=== PATIENT | female | born 1965 | race Caucasian/White ===

== ENCOUNTER 2020-09-08 18:47 | Inpatient (IN) ==
[2020-09-08] MEDS ORDERED: ALBUT/IPRATROP 3MG/0.5MG NEB 3 ML VIAL NEB STA (19:30)
[2020-09-08] MEDS ORDERED: BENZONATATE 100 MG CAPSULE PO ONE (19:30)
[2020-09-08] MEDS ORDERED: LORazepam 1 MG/2 ML VIAL IV PRN (19:30)
[2020-09-08] MEDS ORDERED: SODIUM CHLORIDE 0.9% 1000ML 1,000 ML IV SCH (19:30)
[2020-09-08] MEDS ORDERED: ONDANSETRON INJ 2 MG/ML 2 ML VIAL IV STA (19:30)
--- NOTE | 2020-09-08 19:36 | Emergency Department Note ---
History of Present Illness General Chief complaint: Flu Like Symptoms Stated complaint: COV + 08/09, SOB, FEVER, CONGESTION Time Seen by Provider: 09/08/20 19:08 Source: patient Mode of arrival: ambulatory Limitations: no limitations History of Present Illness Provider complaint: Shortness of breath, cough Onset (ago): day(s) 4 Location: chest Severity: moderate Maximum Pain Intensity: 6 Associated symptoms: + chest pain, + cough, + fever/chills, + headaches, + loss of appetite, + malaise, + nausea/vomiting and + shortness of breath Treatments prior to arrival: none This is a 55-year-old female presents the emergency department complaining of increased shortness of breath and cough over the last 3 to 4 days. Patient states she also began having recurrent low-grade fever. Patient states on August 09 she is diagnosed with coronavirus and was admitted to [facility] for 8 days. She states she did feel improved following discharge and was checking her oxygen level with a home pulse oximeter. States home nursing was coming to check on her every other day, and she was also being contacted via phone every day to assure she was improving. Patient states that her temperature went to 99.7. She states her cough is mildly productive, she has had nasal congestion, and with frequent coughing sometimes will vomit. She states the frequent coughing occasionally gives her headache also. Patient denies abdominal pain or change in bowel movements. Patient states she has some mild chest tightness. Patient states she was never smoker, no prior history of asthma or COPD. She states once a year she will typically get bronchitis and does use an inhaler when she gets that. She states the symptoms feel different than her usual bronchitis. Patient states when she called her family doctor few days ago to describe her worsening symptoms, a prescription for cefdinir was called in and she was started on this. Patient is anticoagulated due to history of factor V. No prior history of PE. Pt seen during a time of high acuity and national emergency pandemic while wearing PPE. Home Medications Medication Instructions Recorded Confirmed Type cgtwiurhic-eatrxwdxalaar-qdxguote 2 cap PO Q4H PRN #60 cap 04/29/19 09/08/20 Rx 50 mg-325 mg-40 mg capsule albuterol sulfate 2.5 mg CONTINUOUS NEBULIZATION Q4 09/08/20 09/08/20 History PRN apixaban [Eliquis] 2.5 mg PO BID 09/08/20 09/08/20 History benzonatate 100 mg PO TID PRN 09/08/20 09/08/20 History cyclobenzaprine 10 mg PO BID PRN 09/08/20 09/08/20 History ibuprofen 800 mg PO TID PRN 09/08/20 09/08/20 History lorazepam 0.5 mg PO TID PRN 09/08/20 09/08/20 History Allergies Allergy/AdvReac Type Severity Reaction Status Date / Time amoxicillin Allergy Unknown RASH, Verified 09/08/20 23:01 DIAPHORESIS azithromycin Allergy Unknown Rash Verified 09/08/20 23:01 cephalexin Allergy Unknown RASH Verified 09/08/20 23:01 clindamycin Allergy Unknown RASH Verified 09/08/20 23:01 doxycycline Allergy Unknown RASH Verified 09/08/20 23:01 erythromycin base Allergy Unknown RASH Verified 09/08/20 23:01 naproxen Allergy Unknown RASH, uses Verified 09/08/20 23:01 ibuprofen at home Bactrim AdvReac Unknown NAUSEA AND Verified 03/10/15 16:43 VOMITING citalopram AdvReac Unknown HEADACHE Verified 09/08/20 23:01 metoclopramide AdvReac Unknown DIAPHORESIS, Verified 09/08/20 23:01 MOOD CHANGES, LOW BP sulfamethoxazole AdvReac Unknown NAUSEA AND Verified 09/08/20 23:01 VOMITING sumatriptan AdvReac Unknown SEVERE Verified 09/08/20 23:01 HEADACHE trimethoprim AdvReac Unknown NAUSEA AND Verified 09/08/20 23:01 VOMITING Penicillins AdvReac Unknown Verified 09/08/20 23:01 Past Med/Surg History Medical History (Updated 09/09/20 @ 22:15 by Rosamaria Soto DO) Allergic rhinitis Common migraine Depression Osteoarthritis, knee Pneumonia due to COVID-19 virus Surgical History H/O arthroscopy of knee History of appendectomy History of lumbar laminectomy Family History (Updated 09/09/20 @ 09:51 by Luzma Jalloh MD) Father Dementia Mother Psoriasis Migraine headache Eosinophilic granulomatosis with polyangiitis (EGPA) Grandmother (Paternal) Coronary heart disease Cancer renal cell Grandmother (Maternal) Stroke Grandfather (Maternal) Cancer Social History Smoking Status: Never smoker Second Hand Exposure: No; Do You Dip or Chew Tobacco: No; Tobacco Cessation Education Requested by Patient: No Hx Alcohol Use: No Hx Substance Use: No Preferred Language: Kazakh Communication Ability: Effective Talking Books Library Clerk Required: No Beliefs That Will Affect Care: None marital status: Current Living Situation: Spouse Other Information That Helps Us Care for You: No Feels Safe at Home: Yes Safety Concerns: Feels Safe At This Time Assistive Devices: Oxygen - Continuous Review of Systems See HPI for pertinent positives & negatives. and A total of 10 systems reviewed and were otherwise negative Physical Exam Vital Signs Vital Signs - 24 hr 09/08/20 22:20 09/08/20 22:25 09/08/20 22:30 Pulse Rate 115 H 117 H 114 H Pulse Rate from SpO2 Sensor 116 H 116 H 114 H Respiratory Rate 16 24 Blood Pressure 127/87 Blood Pressure Mean 92 Pulse Oximetry 99 95 100 Oxygen Delivery Method Room Air Room Air Room Air 09/08/20 22:40 09/08/20 22:50 Pulse Rate 116 H 114 H Pulse Rate from SpO2 Sensor 116 H 114 H Respiratory Rate 20 36 H Blood Pressure Blood Pressure Mean Pulse Oximetry 100 97 Oxygen Delivery Method Room Air Room Air GENERAL: alert, anxious appearing, well nourished, mild distress, non-toxic, f requent coughing, tearful EYE EXAM: normal conjunctiva, PERRL and EOM's grossly intact OROPHARYNX: no exudate, no erythema, lips, buccal mucosa, and tongue normal and mucous membranes are moist NECK: supple, no nuchal rigidity, no adenopathy, non-tender LUNGS: Clear to auscultation. Normal chest wall mechanics, no w/r/r, increased WOB, tachypnea HEART: no murmurs, S1 normal and S2 normal, tachycardia noted on telemetry ABDOMEN: abdomen soft, non-tender, normo-active bowel sounds, no masses, no rebound or guarding, scattered areas of ecchymosis noted from anticoagulation injections she was receiving while hospitalized BACK: Back is symmetrical on inspection and there is no deformity, no midline tenderness, no CVA tenderness. SKIN: no rashes and no bruising UPPER EXTREMITIES: upper extremities are grossly normal. FROM, nml pulses b/l. LOWER EXTREMITIES: No pitting edema. FROM, nml pulses b/l. NEURO EXAM: Normal sensorium, cranial nerves II-XII grossly intact, normal speech, no gross weakness of arms, no gross weakness of legs. Gross sensation intact. Course Course 2204: pt updated on results. Patient appears improved, reports feeling improved at this time. 2207: Case discussed with Dr. Tony. Administered Medications Acetaminophen (Acetaminophen 325 Mg Tab) 650 mg PO Q4H PRN PRN Reason: Pain or Fever Stop: 10/09/20 01:13 Last Admin: 09/09/20 02:49 Dose: 650 mg Documented by: [id number] Apixaban (Apixaban 2.5 Mg Tab) 2.5 mg PO BID [facility] Stop: 10/09/20 08:59 Last Admin: 09/09/20 20:41 Dose: 2.5 mg Documented by: [id number] Admin: 09/09/20 08:46 Dose: 2.5 mg Documented by: [id number] Benzonatate (Benzonatate 100 Mg Capsule) 100 mg PO TID [facility] Stop: 10/09/20 08:59 Last Admin: 09/09/20 20:41 Dose: 100 mg Documented by: [id number] Admin: 09/09/20 13:40 Dose: 100 mg Documented by: [id number] Admin: 09/09/20 08:48 Dose: 100 mg Documented by: [id number] Diphenhydramine HCl (Diphenhydramine Capsule 25 Mg Cap) 25 mg PO Q6 PRN PRN Reason: Itching/rash Stop: 10/09/20 17:21 Last Admin: 09/09/20 20:41 Dose: 25 mg Documented by: [id number] Guaifenesin/Codeine Phosphate (Guaifenesin/Codeine 100mg/10mg 5ml Udc) 5 ml PO Q6H PRN PRN Reason: Cough Stop: 10/09/20 15:03 Last Admin: 09/09/20 20:41 Dose: 5 ml Documented by: [id number] Azithromycin 250 mg/ Dextrose 252.5 mls @ 125 mls/hr IV Q24H GINNY Stop: 09/16/20 15:59 Last Infusion: 09/09/20 17:55 Dose: 0 mls/hr Documented by: [id number] Admin: 09/09/20 15:53 Dose: 125 mls/hr Documented by: [id number] Discontinued Medications Acetaminophen/Butalbital/Caffeine (Butalbital/Acetamin/Caffeine Tab) 2 tab PO Q4H PRN PRN Reason: headache Stop: 10/09/20 01:13 Last Admin: 09/09/20 09:04 Dose: 2 tab Documented by: [id number] Albuterol (Albut/Ipratrop 3mg/0.5mg Neb 3 Ml Vial) 3 ml NEB NOW STA Stop: 09/08/20 19:31 Last Admin: 09/08/20 20:16 Dose: 3 ml Documented by: [id number] Benzonatate (Benzonatate 100 Mg Capsule) 100 mg PO NOW ONE Stop: 09/08/20 19:31 Last Admin: 09/08/20 19:48 Dose: 100 mg Documented by: [id number] Cetirizine HCl (Cetirizine Hcl 10 Mg Tablet) 10 mg PO NOW ONE Stop: 09/09/20 18:29 Last Admin: 09/09/20 19:29 Dose: 10 mg Documented by: [id number] Fluticasone Propionate (Fluticasone Propionate Na Spr 16 Gm Btl) 1 sprays NA ONE ONE Stop: 09/09/20 18:46 Last Admin: 09/09/20 19:30 Dose: 1 sprays Documented by: [id number] Fluticasone/Vilanterol (Fluticasone/Vilanterol 100/25mcg 14 Puffs/Inhaler) 1 puffs INH DAILY GINNY Stop: 10/09/20 15:14 Last Admin: 09/09/20 15:54 Dose: 1 puffs Documented by: [id number] Guaifenesin (Guaifenesin Sugar Free 100 Mg/5 Ml Udc) 100 mg PO Q6H PRN PRN Reason: Cough Stop: 10/09/20 01:13 Last Admin: 09/09/20 02:49 Dose: 100 mg Documented by: [id number] Sodium Chloride (Nss 1000ml) 1,000 mls @ 125 mls/hr IV .Q8H GINNY Stop: 10/08/20 19:29 Last Infusion: 09/09/20 01:15 Dose: 0 mls/hr Documented by: [id number] Infusion: 09/08/20 23:20 Dose: 0 mls/hr Documented by: [id number] Admin: 09/08/20 19:48 Dose: 125 mls/hr Documented by: [id number] Lorazepam (Ativan) 1 mg in 2 mls @ 0.5 mls/min IV UD PRN PRN Reason: Anxiety Stop: 10/08/20 19:29 Last Admin: 09/08/20 19:48 Dose: 0.5 mls/min Documented by: [id number] Vancomycin HCl 2,250 mg/ (Sodium Chloride) 545 mls @ 200 mls/hr IV NOW ONE Stop: 09/09/20 00:35 Last Infusion: 09/09/20 01:16 Dose: 0 mls/hr Documented by: [id number] Admin: 09/08/20 22:53 Dose: 200 mls/hr Documented by: [id number] Levofloxacin/Dextrose (Levaquin/D5w) 750 mg in 150 mls @ 100 mls/hr IV NOW STA Stop: 09/08/20 23:22 Last Infusion: 09/09/20 01:15 Dose: 0 mls/hr Documented by: [id number] Admin: 09/08/20 23:18 Dose: 100 mls/hr Documented by: [id number] Ceftriaxone Sodium 2,000 mg/ (Dextrose) 70 mls @ 140 mls/hr IV DAILY GINNY; Protocol Stop: 09/16/20 08:59 Last Infusion: 09/09/20 09:17 Dose: 0 mls/hr Documented by: [id number] Admin: 09/09/20 08:47 Dose: 140 mls/hr Documented by: [id number] Ioversol (Optiray 320 125ml) 118 ml IV ONCE ONE Stop: 09/08/20 21:17 Last Admin: 09/08/20 21:16 Dose: 1 ml Documented by: [id number] Ondansetron HCl (Ondansetron Inj 2 Mg/Ml 2 Ml Vial) 4 mg IV NOW STA Stop: 09/08/20 19:31 Last Admin: 09/08/20 19:48 Dose: 4 mg Documented by: [id number] Prednisone (Prednisone 20 Mg Tab) 40 mg PO NOW ONE Stop: 09/09/20 15:16 Last Admin: 09/09/20 15:53 Dose: 40 mg Documented by: [id number] Pseudoephedrine HCl (Pseudoephedrine Hcl 30 Mg Tab) 30 mg PO ONE ONE Stop: 09/09/20 18:46 Last Admin: 09/09/20 19:29 Dose: 30 mg Documented by: [id number] Medical Decision Making Differential Diagnosis Differential diagnoses includes but is not limited to pneumonia, bronchitis, COPD/Asthma exacerbation, pneumothorax, pulmonary embolism, congestive heart failure, acute coronary syndrome Medical Records Attestation: I reviewed the patient's medical records. Home Medications Current Medication List: was personally reviewed by me Laboratory Data Attestation: I reviewed the patient's lab results. Result diagrams: 09/09/20 12:00 09/09/20 06:23 Lab Results 09/08/20 09/08/20 09/08/20 Range/Units 19:50 19:50 19:52 WBC 5.02 (4.8-10.8) K/uL RBC 4.23 (4.2-5.4) M/uL Hgb 12.4 (12.0-16.0) g/dL Hct 37.3 (37-47) % MCV 88.2 (80-100) fL MCH 29.3 (25-34) pg MCHC 33.2 (32-36) g/dL RDW Std Deviation 48.1 H (36.4-46.3) fL RDW Coeff of Ayanna 15.1 H (11.5-14.5) % Plt Count 229 (130-400) K/uL MPV 10.0 (7.4-10.4) fL Immature Gran % (Auto) 0.4 % Neut % (Auto) 62.1 % Lymph % (Auto) 21.3 % [place] % (Auto) 11.2 % Eos % (Auto) 4.8 % Baso % (Auto) 0.2 % Neut # (Auto) 3.12 (1.4-6.5) K/uL Lymph # (Auto) 1.07 L (1.2-3.4) K/uL [place] # (Auto) 0.56 (0.11-0.59) K/uL Eos # (Auto) 0.24 (0-0.5) K/uL Baso # (Auto) 0.01 (0-0.2) K/uL Immature Gran # (Auto) 0.02 (0.00-0.02) K/uL Sodium 139 (136-145) mmol/L Potassium 3.6 (3.5-5.1) mmol/L Chloride 106 (98-107) mmol/L Carbon Dioxide 27 (21-32) mmol/L Anion Gap 6.0 (3-11) BUN 10 (7-18) mg/dl Creatinine 0.94 (0.6-1.2) mg/dl Est Cr Clr Drug Dosing Not Reportable Est GFR ( Amer) 79.2 Est GFR (Non-Af Amer) 68.3 BUN/Creatinine Ratio 11.0 (10-20) Glucose 105 H (70-99) mg/dl Calcium 9.1 (8.5-10.1) mg/dl Magnesium 2.2 (1.8-2.4) mg/dl Total Bilirubin 0.3 (0.2-1) mg/dl AST 23 (15-37) U/L ALT 33 (12-78) U/L Alkaline Phosphatase 84 (45-117) U/L Troponin I < 0.015 (0-0.045) ng/ml NT-Pro-B Natriuret Pep 16 (0-900) pg/ml Total Protein 7.4 (6.4-8.2) gm/dl Albumin 3.6 (3.4-5.0) gm/dl Globulin 3.7 (2.5-4.0) gm/dl Albumin/Globulin Ratio 1.0 (0.9-2) Procalcitonin 0.06 (0-0.5) ng/ml TSH 0.882 (0.300-4.500) uIu/ml COVID-19 Eval Order SARS-CoV-2, RNA, NAAT (NEGATIVE) 09/08/20 09/08/20 Range/Units 22:22 22:22 WBC (4.8-10.8) K/uL RBC (4.2-5.4) M/uL Hgb (12.0-16.0) g/dL Hct (37-47) % MCV (80-100) fL MCH (25-34) pg MCHC (32-36) g/dL RDW Std Deviation (36.4-46.3) fL RDW Coeff of Ayanna (11.5-14.5) % Plt Count (130-400) K/uL MPV (7.4-10.4) fL Immature Gran % (Auto) % Neut % (Auto) % Lymph % (Auto) % [place] % (Auto) % Eos % (Auto) % Baso % (Auto) % Neut # (Auto) (1.4-6.5) K/uL Lymph # (Auto) (1.2-3.4) K/uL [place] # (Auto) (0.11-0.59) K/uL Eos # (Auto) (0-0.5) K/uL Baso # (Auto) (0-0.2) K/uL Immature Gran # (Auto) (0.00-0.02) K/uL Sodium (136-145) mmol/L Potassium (3.5-5.1) mmol/L Chloride (98-107) mmol/L Carbon Dioxide (21-32) mmol/L Anion Gap (3-11) BUN (7-18) mg/dl Creatinine (0.6-1.2) mg/dl Est Cr Clr Drug Dosing Est GFR ( Amer) Est GFR (Non-Af Amer) BUN/Creatinine Ratio (10-20) Glucose (70-99) mg/dl Calcium (8.5-10.1) mg/dl Magnesium (1.8-2.4) mg/dl Total Bilirubin (0.2-1) mg/dl AST (15-37) U/L ALT (12-78) U/L Alkaline Phosphatase (45-117) U/L Troponin I (0-0.045) ng/ml NT-Pro-B Natriuret Pep (0-900) pg/ml Total Protein (6.4-8.2) gm/dl Albumin (3.4-5.0) gm/dl Globulin (2.5-4.0) gm/dl Albumin/Globulin Ratio (0.9-2) Procalcitonin (0-0.5) ng/ml TSH (0.300-4.500) uIu/ml COVID-19 Eval [facility], RNA, NAAT NEGATIVE (NEGATIVE) Imaging Data Radiologist's Impression: CTA chest: Extensive bilateral airspace infiltrates, most likely pneumonia. Viral and bacterial pathogens are both possible. Mediastinal lymphadenopathy, presumably reactive. 1.3 cm hypodense left thyroid lobe nodule. No PE or aortic dissection. Radiologist: Mendez Mckeon MD ECG Data Attestation: I personally reviewed and interpreted this ECG as follows: Indication: + SOB/dyspnea Rate (beats per minute): 118 Rhythm: + sinus tachycardia ECG Intervals/blocks: + Normal QRS and + Normal QT ECG [place]: + Normal ECG ST segments: + Normal ST segments Blood Pressure Blood Pressure Findings: Elevated blood pressure MDM Narrative This is an ill-appearing 55-year-old female who presents to the emergency department with a recent history of coronavirus resulting in hospitalization. Patient had been feeling improved until 3 to 4 days ago when she began worsening again. Patient arrived tachycardic, tachypneic, with increased work of breathing, frequent cough and posttussive emesis. Labs are drawn and sent, and given severity of symptoms as well as recent history, patient sent for CT angiography. Patient found to have bilateral pneumonia. Patient covered with IV antibiotics, additional labs and cultures were added. No evidence of bacteremia/sepsis at this time. Patient's tachycardia and tachypnea did improve with application of oxygen, IV fluids, and symptomatic treatment. Patient was made aware of all results and was in agreement with plan for additional inpatient evaluation. Patient was noted to be hypoxic here initially and was placed on 2 L, patient's hypoxia did not worsen. Patient did appear more comfortable and work of breathing decreased. Case discussed with hospitalist for additional evaluation and management. Repeat Covid swab was performed and was negative. An order was placed for continuous cardiac monitoring. The monitor shows a rate of _111 with _sinus tachycardia rhythm. Impression & Plan Acute dyspnea, Pneumonia Discharge Plan Visit Data Chief Complaint: Flu Like Symptoms Stated Complaint: COV + 08/09, SOB, FEVER, CONGESTION ED Provider: Rosamaria Soto Discharge Problem: Acute dyspnea, Pneumonia Patient Disposition: Admitted As Inpatient Discharge Instructions Interventions: ED Discharge Assessment Last Done: 09/09/20 00:45 Discharge Problem: Pneumonia Qualifiers: Pneumonia type: due to unspecified organism Laterality: bilateral Lung location: lower lobe of lung Qualified Code(s): J18.9 - Pneumonia, unspecified organism
[2020-09-08 20:08] LABS: Basophils # (auto) 0.01 K/uL (0-0.2); Basophils % (auto) 0.2 %; Eosinophils # (auto) 0.24 K/uL (0-0.5); Eosinophils % (auto) 4.8 %; Hematocrit (blood only) 37.3 % (37-47); Hemoglobin 12.4 g/dL (12.0-16.0); Immature Granulocytes # (auto) 0.02 K/uL (0.00-0.02); Immature Granulocytes % (auto) 0.4 %; Lymphocytes # (auto) 1.07 K/uL (1.2-3.4); Lymphocytes % (auto) 21.3 %; Mean Corpuscular Hemoglobin 29.3 pg (25-34); Mean Corpuscular Hgb Conc 33.2 g/dL (32-36); Mean Corpuscular Volume 88.2 fL (80-100); Monocytes # (auto) 0.56 K/uL (0.11-0.59); Monocytes % (auto) 11.2 %; Neutrophils # (auto) 3.12 K/uL (1.4-6.5); Neutrophils % (auto) 62.1 %; Platelet Count 229 K/uL (130-400); RDW Coefficient of Variation 15.1 % (11.5-14.5); RDW Standard Deviation 48.1 fL (36.4-46.3); Red Blood Count 4.23 M/uL (4.2-5.4); White Blood Count 5.02 K/uL (4.8-10.8)
[2020-09-08 20:24] LABS: Alanine Aminotransferase 33 U/L (12-78); Albumin Level 3.6 gm/dl (3.4-5.0); Aspartate Aminotransferase 23 U/L (15-37); Blood Urea Nitrogen 10 mg/dl (7-18); Calcium 9.1 mg/dl (8.5-10.1); Carbon Dioxide 27 mmol/L (21-32); Chloride 106 mmol/L (98-107); Est GFR (African American) 79.2; Est GFR (Non-African American) 68.3; Glucose 105 mg/dl (70-99); Magnesium 2.2 mg/dl (1.8-2.4); Potassium 3.6 mmol/L (3.5-5.1); Sodium 139 mmol/L (136-145)
[2020-09-08 20:35] LABS: Alkaline Phosphatase 84 U/L (45-117); Bilirubin,Total 0.3 mg/dl (0.2-1); Globulin 3.7 gm/dl (2.5-4.0); NT Pro B Type Natriuretic Pept 16 pg/ml (0-900); Thyroid Stimulating Hormone 0.882 uIu/ml (0.300-4.500); Total Protein 7.4 gm/dl (6.4-8.2); Troponin I < 0.015 ng/ml (0-0.045)
[2020-09-08] MEDS ORDERED: OPTIRAY 320 125ml IV ONE (21:16)
[2020-09-08] MEDS ORDERED: VANCOMYCIN HCL 2,250 MG in SODIUM CHLORIDE 0.9% 500 ML IV ONE (21:52)
[2020-09-08] MEDS ORDERED: VANCOMYCIN CONSULT ACTIVE PRN ×2 (21:52)
[2020-09-08] MEDS ORDERED: levoFLOXacin/D5W 750 MG/150 ML BAG IV STA (21:53)
[2020-09-09] MEDS ORDERED: BUTALBITAL/ACETAMIN/CAFFEINE TAB PO PRN (01:14)
[2020-09-09] MEDS ORDERED: LORazepam 0.5 MG TAB PO PRN (01:14)
[2020-09-09] MEDS ORDERED: NITROGLYCERIN SL 0.4 MG/TAB TAB SL PRN (01:14)
[2020-09-09] MEDS ORDERED: guaiFENesin SUGAR FREE 100 MG/5 ML UDC PO PRN (01:14)
[2020-09-09] MEDS ORDERED: CYCLOBENZAPRINE HCL 10 MG TAB PO PRN (01:14)
[2020-09-09] MEDS ORDERED: ALBUTEROL 0.083% NEBU SOLN 3 ML VIAL INH PRN (01:14)
[2020-09-09] MEDS: ACETAMINOPHEN 325 MG TAB PO PRN (02:49)
--- NOTE | 2020-09-09 03:02 | History and Physical Report ---
DATE OF ADMISSION: 09/09/2020 CHIEF COMPLAINT: Shortness of breath, recent COVID. HISTORY OF PRESENT ILLNESS: A 55-year-old female with past medical history significant for hyperlipidemia, mild persistent asthma, allergic rhinitis, history of prolonged QT, obesity, sciatica, migraines, factor V Leiden mutation, , dysthymia. The patient presents with ongoing shortness of breath and cough. The patient was diagnosed with COVID 19 on 08/08/2020 and she was admitted to [facility] on August 15, and got remdesivir and dexamethasone and was discharged on 08/23/2020 with home oxygen while ambulating. The patient is using oxygen. She is ambulating at home when she is using oxygen, but last few days she is having again low-grade fever and also her oxygen saturation going down into 80s when she is ambulating with minimal exertion and she also requiring oxygen while sleeping and she told her PCP and she was prescribed cefuroxime but her symptoms are not getting better and she came here. Here COVID test is negative. The patient's labs are okay, CTA chest, no PE, but showed bilateral infiltrates. Got antibiotics for possible superimposed bacterial infection. The patient having lot of cough and once in a while she gets greenish phlegm. Denies any chest pain, no loss of sense of smell or taste. Appetite is okay. Has headaches, no blurred vision, no earache, no runny nose, no sore throat, no dysphagia, has episode of vomiting a couple of days ago. No diarrhea, no blood in the stools or black stools. Normal bladder movements. No swelling in the legs, no rash. ALLERGIES: SULFA, BACTRIM, AMOXICILLIN, CITALOPRAM, CLINDAMYCIN, DOXYCYCLINE, ERYTHROMYCIN, IMITREX, NAPROXEN, PANIXINE, REGLAN AND ZITHROMAX. PAST MEDICAL HISTORY: As mentioned above. PAST SURGICAL HISTORY: , colonoscopy, bilateral lumpectomy, breast reduction, skin removal, lumbar decompression and fusion surgery, appendectomy. MEDICATIONS: The patient is on albuterol nebulization q. 4 hours p.r.n., Eliquis 2.5 mg p.o. b.i.d., benzonatate 200 mg p.o. b.i.d. p.r.n., butalbital acetaminophen caffeine 2 tablets p.o. q. 4 hours p.r.n., cyclobenzaprine 10 mg p.o. b.i.d. p.r.n., ibuprofen 800 mg p.o. t.i.d. p.r.n., Ativan 0.5 mg p.o. t.i.d. p.r.n. FAMILY HISTORY: Significant for brother has allergies, mother had eczema, hypertension, high cholesterol. Sister has allergies, paternal grandmother had brain tumor, CHF, osteoarthritis. SOCIAL HISTORY: . No smoking, no alcohol, no drug use. REVIEW OF SYMPTOMS: As per HPI. Rest of review of symptoms negative. PHYSICAL EXAMINATION: GENERAL: The patient is obese, not in acute distress. VITAL SIGNS: Temperature 37.4, pulse 114, respiratory rate in 20s, blood pressure 127/87, oxygen 97% on room air. HEENT: Pupils equal, round, and reactive to light. Oral mucosa moist. NECK: No neck masses seen. CARDIOVASCULAR: S1, S2 heard. Tachycardia. No murmurs. RESPIRATORY SYSTEM: Normal AP diameter. No accessory muscle use. Mild bibasilar crackles. No wheezing. ABDOMEN: Soft, bowel sounds present, nontender. No distention. CENTRAL NERVOUS SYSTEM: Cranial nerves II-XII grossly intact. Nonfocal. EXTREMITIES: No edema, no erythema. LABORATORY DATA: WBC 5.02, hemoglobin 12.4, hematocrit 37.3, platelets 229. Sodium 139, potassium 3.6, chloride 106, bicarbonate 27, BUN 10, creatinine 0.9, serum glucose 105, calcium 9.1, magnesium 2.2, total bilirubin 0.3, AST 23, ALT 33, alkaline phosphatase 84. Troponin I less than 0.015. BNP 16. Procalcitonin 0.06. TSH 0.082. SARS-CoV-2 negative . CTA chest, preliminary report shows l no PE, extensive bilateral airspace infiltrate, most likely pneumonia, viral and bacterial pathogens are both possible. Mediastinal lymphadenopathy, presumably reactive, 1.3 cm hypodense left thyroid lobe nodule, no PE or aortic dissection. EKG: Sinus tachycardia at a rate of 118, no acute ST changes seen. QTc of 473. ASSESSMENT AND PLAN: This 55-year-old female was recently diagnosed with COVID-19 pneumonia, comes with ongoing shortness of breath, cough, and low grade fevers. 1. Hypoxia. Shortness of breath, low grade fever, possible superimposed bacterial pneumonia on recent COVID pneumonia. Empirically started on vancomycin and Levaquin in the ER which we will continue. Oxygen supplementation.Nebs as needed. Follow the cultures, closely monitor in the med tele. 2. Recent COVID-19 pneumonia. The patient was diagnosed with COVID on 08/08/2020, was in [facility] from 08/15/2020-08/23/2020, received remdesivir and dexamethasone, requiring oxygen at home while ambulating. Lately in the last couple of days requiring more oxygen and still having dry cough once a while green phlegm. Continue supportive care. Antibiotics as above for any superimposed bacterial infection. Will consult pulmonary as now patient requiring oxygen at rest. 3. History of factor V Leiden deficiency. Continue her Eliquis. 4. History of migraine. Continue home pain medications. 5. History of prolonged QT. Currently, getting Levaquin . Will monitor EKG daily for any prolonged QT. 6. History of mild persistent asthma Has no wheezing. Continue home nebs as needed. 7. Deep venous thrombosis prophylaxis, on Eliquis. DISPOSITION: Admit to med tele. Expect discharge home and follow with family doctor. Level 1 full code. MTDD
[2020-09-09 06:46] LABS: Basophils # (auto) 0.01 K/uL (0-0.2); Basophils % (auto) 0.3 %; Eosinophils % (auto) 5.4 %; Immature Granulocytes # (auto) 0.01 K/uL (0.00-0.02); Immature Granulocytes % (auto) 0.3 %; Lymphocytes # (auto) 1.15 K/uL (1.2-3.4); Lymphocytes % (auto) 31.3 %; Mean Corpuscular Hemoglobin 28.6 pg (25-34); Mean Corpuscular Hgb Conc 32.4 g/dL (32-36); Mean Corpuscular Volume 88.3 fL (80-100); Mean Platelet Volume 9.8 fL (7.4-10.4); Monocytes # (auto) 0.33 K/uL (0.11-0.59); Neutrophils # (auto) 1.97 K/uL (1.4-6.5); Neutrophils % (auto) 53.7 %; Platelet Count 181 K/uL (130-400); RDW Coefficient of Variation 15.3 % (11.5-14.5); RDW Standard Deviation 48.8 fL (36.4-46.3); Red Blood Count 3.85 M/uL (4.2-5.4); White Blood Count 3.67 K/uL (4.8-10.8)
[2020-09-09 07:18] LABS: BUN Creatinine Ratio 10.7 (10-20); Calcium 8.5 mg/dl (8.5-10.1); Creatinine Clr Calc Pharmacy 117.7 ml/min; Est GFR (African American) 114.7; Magnesium 2.3 mg/dl (1.8-2.4)
--- NOTE | 2020-09-09 07:44 | CT Scan Report ---
CT ANGIOGRAM OF THE CHEST CLINICAL HISTORY: Dyspnea. Atypical chest pain. COMPARISON STUDY: Chest x-ray dated 01/10/2015. TECHNIQUE: Following the IV administration of 118 cc of Optiray 320, CT angiogram of the chest was pe rformed from the upper abdomen to the thoracic inlet utilizing the pulmonary embolus protocol. Images are reviewed in the axial, sagittal, and coronal planes. 3-D MIPS images are created and assessed. I V contrast was administered without complication. A dose lowering technique was utilized adhering to the principles of ALARA. The examination is compromised by motion artifact. CT DOSE: 804.94 mGy.cm FINDINGS: Thyroid: Imaged portions of the thyroid gland appear mildly enlarged and heterogeneous. A 14 mm low-a ttenuation nodule is seen in the left lobe. Thoracic aorta: The thoracic aorta is normal in caliber and demonstrates standard 3-vessel arch anato my. No dissection is seen. Pulmonary vasculature: The pulmonary trunk is normal in caliber. There are no filling defects identif ied in main, lobar, or segmental pulmonary branches to suggest pulmonary embolus. Heart: The heart is top normal in size and without pericardial effusion. Lungs and pleural spaces: There is diffuse/multifocal predominantly groundglass consolidation seen th roughout both lungs. No pleural effusion is identified. The trachea and central airways are clear. Mediastinum: There is mediastinal lymphadenopathy. A right peritracheal node on image #181 measures 2 .1 x 1.4 cm. Prevascular nodes measure up to 1.2 cm in short axis. Rhonda: Clear. Axillae: There is no axillary lymphadenopathy. Upper abdomen: The liver appears steatotic. A small hiatal hernia is noted. Skeletal structures: No lytic or blastic bony lesions are seen. IMPRESSION: 1. There is no evidence of pulmonary embolus in the main, lobar, or segmental pulmonary arteries. 2. There is diffuse/multifocal and predominantly groundglass consolidation seen throughout both lungs typical for an infectious/inflammatory pneumonitis. Clinical correlation will be required and radiog raphic follow-up to resolution is recommended. 3. There is no pleural effusion. 4. Mediastinal lymphadenopathy is nonspecific and likely on a reactive basis. 5. A 14 mm nodule is seen in the left lobe of the thyroid gland. Nonemergent thyroid ultrasound is re commended for further assessment. ACT 112: Negative or not required by law. Electronically signed by: Juan Antonio Huff M.D. 09/09/2020 7:43 AM
[2020-09-09] MEDS ORDERED: VANCOMYCIN HCL 1,500 MG in SODIUM CHLORIDE 0.9% 500 ML IV SCH (08:00)
[2020-09-09] MEDS: APIXABAN 2.5 MG TAB PO SCH ×2 (08:46→20:41)
[2020-09-09] MEDS: BENZONATATE 100 MG CAPSULE PO SCH ×3 (08:48→20:41)
[2020-09-09] MEDS ORDERED: cefTRIAXone SODIUM 2,000 MG in DEXTROSE 5% 50 ML IV SCH (09:00)
[2020-09-09] MEDS ORDERED: DOXYCYCLINE HYCLATE 100 MG CAP PO SCH (09:00)
[2020-09-09] MEDS ORDERED: cefTRIAXone SODIUM 1,000 MG in DEXTROSE 5% 50 ML IV SCH (09:00)
--- NOTE | 2020-09-09 09:23 | Pulmonary Consultation ---
Date of Consultation September 09, 2020 Assessment & Plan (1) Dyspnea: 55 yo F with recent diagnosis of COVID19 Pneumonia, discharged from [facility] on 08/25/20 who presented to the ER last night after having worsening shortness of breath and increasing supplemental oxygen requirement. 1) Dyspnea - COVID19 Negative on readmission - imaging from [facility] reviewed, no CT Chest found. CXR found. - in comparison to imaging performed here, appears that patient has ongoing fibrosclerotic disease in her lungs and groundglass opacities - Differential includes viral pneumonia vs bacterial pneumonia superimposed on fibrotic lung changes from COVID19 vs interstitial lung disease vs diffuse alveolar hemorrhage -Bacterial Pneumonia - WBC/procal WNL, afebrile, less likely to be bacterial - d/c ceftriaxone given low suspicion for typical pneumonia. - ESR, CRP, LDH pending - Viral/Atypical Pneumonia - Urine Legionella Antigen, HIV, Biofire to evaluate for acute vs chronic inflammatory disease and immunologic status - Given hx of prolonged QT, EKG ordered. If QTc <475 will start on azithromycin x 5 days. - if viral panel negative, may be a candidate for 7 day course of steroids - no recent sick contacts, occupational exposures or zoonotic exposures for atypical pneumonias - Alveolar Hemorrhage - has been on eliquis for factor V leiden mutations; with lower Hg alveolar hemorrhage secondary to viral infection also possible. - Less likely without hemoptysis. H&H recheck at noon. Dyspnea type: dyspnea on exertion Qualified Code(s): R06.00 - Dyspnea, unspecified Supervising Physician Co-Signing Physician Notes Dr. Jalloh was the resident-physician during care of patient. I separately evaluated patient for camilo portions of the history and the exam. I was present during the critical portion of medical decision making, and I discussed the case with the resident. I generally agree with the findings and plan except for any additions/exceptions noted. 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 Her ESR is within normal limits. CRP is mildly elevated. LDH was within normal limits. Opportunistic infection such as PJP seems less likely at this point. Diffuse alveolar hemorrhage also seems less likely given that her repeat hemoglobin is stable at 11.1 and she has no evidence of hemoptysis. Bio fire testing today was negative. Urine Legionella is pending. proBNP was negative. I am going to start her on 40 mg of p.o. prednisone for 7 days, ICS/LABA inhaler and codeine/guaifenesin as needed q6 hours. I recommend a repeat high-resolution CT chest in 6 weeks along with pulmonary function testing. The patient became tearful at one point and fearing that she will get worse. I encouraged her that her COVID-19 test this admission was negative and then I suspect that she will improve, but time will be a big factor in her improvement. Pulmonary will continue to follow along with you. Thank you for the consult. History of Present Illness Attending Physician: Hillary Alicia MD History of Present Illness Pt is a 55 yo F with hx hyperlipidemia, mild persistent asthma, allergic rhinitis, obesity, factor V Leiden mutation, dysthymia and recently discharged from [facility] on 08/25 after being admitted with COVID19 pneumonia. She states she was discharged home with oxygen to use while walking or exercising. She states that in the past few days she has been feeling increasingly short of breath, and has noticed she isn't able to walk as many laps in her house without taking breaks and has not been able to use her incentive spirometer as much. She notes that 2 days ago she had some chills at night and might've had night sweats as she woke up somewhat damp. She had 2 measured temperatures at home of 99.8 and 99.1, without any additional temps above 100F. She also notes having a cough that has become more frequent, sometimes productive but mostly dry. She denies any personal smoking history, and no one smokes at home. Her mother did smoke in the house while growing up. She denies any vaping history or tobacco chewing history. She has no indoor pets at home, but has 2 cats that stay outside. Her daughter has 2 large dogs but Cookie has severe allergies to them so she generally stays away from them. She denies any recent travel, exposure to caves, bats, farm animals, birds. No history of workplace exposure to sand blasting, machinery or metal. 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 She says she has never been told she has COPD, but does have to use her steroid and albuterol inhaler about once a year when she gets sick. She does not otherwise take her inhalers regularly. She has had no known sick contacts as she has been quarantined at home, her gets curbside grocery sampler pickup and the only people coming to the house have been periodic nursing help. Allergies Allergy/AdvReac Type Severity Reaction Status Date / Time amoxicillin Allergy Unknown RASH, Verified 09/08/20 23:01 DIAPHORESIS azithromycin Allergy Unknown Rash Verified 09/08/20 23:01 cephalexin Allergy Unknown RASH Verified 09/08/20 23:01 clindamycin Allergy Unknown RASH Verified 09/08/20 23:01 doxycycline Allergy Unknown RASH Verified 09/08/20 23:01 erythromycin base Allergy Unknown RASH Verified 09/08/20 23:01 naproxen Allergy Unknown RASH, uses Verified 09/08/20 23:01 ibuprofen at home Bactrim AdvReac Unknown NAUSEA AND Verified 03/10/15 16:43 VOMITING citalopram AdvReac Unknown HEADACHE Verified 09/08/20 23:01 metoclopramide AdvReac Unknown DIAPHORESIS, Verified 09/08/20 23:01 MOOD CHANGES, LOW BP sulfamethoxazole AdvReac Unknown NAUSEA AND Verified 09/08/20 23:01 VOMITING sumatriptan AdvReac Unknown SEVERE Verified 09/08/20 23:01 HEADACHE trimethoprim AdvReac Unknown NAUSEA AND Verified 09/08/20 23:01 VOMITING Penicillins AdvReac Unknown Verified 09/08/20 23:01 Home Medications Medication Instructions Recorded Confirmed Type ztzqkjpdps-rizldnuixwgba-kzetujso 2 cap PO Q4H PRN #60 cap 04/29/19 09/08/20 Rx 50 mg-325 mg-40 mg capsule albuterol sulfate 2.5 mg CONTINUOUS NEBULIZATION Q4 09/08/20 09/08/20 History PRN apixaban [Eliquis] 2.5 mg PO BID 09/08/20 09/08/20 History benzonatate 100 mg PO TID PRN 09/08/20 09/08/20 History cyclobenzaprine 10 mg PO BID PRN 09/08/20 09/08/20 History ibuprofen 800 mg PO TID PRN 09/08/20 09/08/20 History lorazepam 0.5 mg PO TID PRN 09/08/20 09/08/20 History Patient History Medical History (Updated 12/01/20 @ 09:17 by Luzma Jalloh MD) Allergic rhinitis Common migraine Depression Osteoarthritis, knee Pneumonia due to COVID-19 virus Surgical History H/O arthroscopy of knee History of appendectomy History of lumbar laminectomy Family History (Updated 09/09/20 @ 09:51 by Luzma Jalloh MD) Father Dementia Mother Psoriasis Migraine headache Eosinophilic granulomatosis with polyangiitis (EGPA) Grandmother (Paternal) Coronary heart disease Cancer renal cell Grandmother (Maternal) Stroke Grandfather (Maternal) Cancer Social History Smoking Status: Never smoker Second Hand Exposure: No; Do You Dip or Chew Tobacco: No; Tobacco Cessation Education Requested by Patient: No Hx Alcohol Use: No Hx Substance Use: No Preferred Language: Irish Communication Ability: Effective Hat Checker Required: No Beliefs That Will Affect Care: None Current Living Situation: Spouse Other Information That Helps Us Care for You: No Feels Safe at Home: Yes Safety Concerns: Feels Safe At This Time Assistive Devices: Oxygen - Continuous Review of Systems Constitutional: + chills, + sweats, + body aches and + fatigue; no fever Respiratory: + cough and + dyspnea; no change in sputum, no pain on inspiration, no pain with cough and no sputum production Cardiovascular: no chest pain, no palpitations, no syncope and no edema Gastrointestinal: no abdominal pain Physical Exam Constitutional: + obese; no acute distress Neck: trachea midline Respiratory: normal respiratory effort, + cough and able to speak in complete sentences; no respiratory distress, no labored breathing, no retractions, does not use accessory muscles, no audible wheezes and no nasal flaring Auscultation: lungs clear to auscultation bilaterally; no crackles, no rales, no rhonchi, no wheezes, no pleural rub and no bronchial breath sounds Cardiovascular: Rate/Rhythm: regular rate and regular rhythm Results & Data Results & Data ([facility]) Vital Signs (Past 12 Hours) Vital Signs Temp Pulse Pulse Pulse Resp BP BP 09/09/20 07:33 36.7 C 94 H 18 09/09/20 07:12 96 H 09/09/20 05:21 107 H 09/09/20 04:00 36.5 C 113 H 18 152/83 H 09/09/20 01:14 36.6 C 108 H 20 09/09/20 00:38 106 H 24 117/86 09/08/20 22:50 114 H 36 H 09/08/20 22:40 116 H 20 09/08/20 22:30 114 H 09/08/20 22:25 117 H 24 127/87 09/08/20 22:20 115 H 16 09/08/20 22:10 115 H 32 H 09/08/20 22:00 115 H 35 H 127/87 09/08/20 21:50 119 H 40 H 09/08/20 21:40 123 H 20 09/08/20 21:31 113 H 22 109/81 09/08/20 21:30 114 H 18 09/08/20 21:28 116 H 16 09/08/20 21:10 119 H 16 BP Pulse Ox Pulse Ox 09/09/20 07:33 100/61 94 09/09/20 07:12 09/09/20 05:21 09/09/20 04:00 96 09/09/20 01:14 136/78 94 82 L 09/09/20 00:38 96 09/08/20 22:50 97 09/08/20 22:40 100 09/08/20 22:30 100 09/08/20 22:25 95 09/08/20 22:20 99 09/08/20 22:10 97 09/08/20 22:00 99 09/08/20 21:50 09/08/20 21:40 99 09/08/20 21:31 100 09/08/20 21:30 99 09/08/20 21:28 99 09/08/20 21:10 94 Laboratory Results WBC 3.67 K/uL (4.8-10.8) L 09/09/20 06:23 RBC 3.85 M/uL (4.2-5.4) L 09/09/20 06:23 Hgb 11.0 g/dL (12.0-16.0) L 09/09/20 06:23 Hct 34.0 % (37-47) L 09/09/20 06:23 MCV 88.3 fL (80-100) 09/09/20 06:23 MCH 28.6 pg (25-34) 09/09/20 06:23 MCHC 32.4 g/dL (32-36) 09/09/20 06:23 RDW Std Deviation 48.8 fL (36.4-46.3) H 09/09/20 06:23 RDW Coeff of Ayanna 15.3 % (11.5-14.5) H 09/09/20 06:23 Plt Count 181 K/uL (130-400) 09/09/20 06:23 MPV 9.8 fL (7.4-10.4) 09/09/20 06:23 Immature Gran % (Auto) 0.3 % 09/09/20 06:23 Neut % (Auto) 53.7 % 09/09/20 06:23 Lymph % (Auto) 31.3 % 09/09/20 06:23 Sutter % (Auto) 9.0 % 09/09/20 06:23 Eos % (Auto) 5.4 % 09/09/20 06:23 Baso % (Auto) 0.3 % 09/09/20 06:23 Neut # (Auto) 1.97 K/uL (1.4-6.5) 09/09/20 06:23 Lymph # (Auto) 1.15 K/uL (1.2-3.4) L 09/09/20 06:23 Sutter # (Auto) 0.33 K/uL (0.11-0.59) 09/09/20 06:23 Eos # (Auto) 0.20 K/uL (0-0.5) 09/09/20 06:23 Baso # (Auto) 0.01 K/uL (0-0.2) 09/09/20 06:23 Immature Gran # (Auto) 0.01 K/uL (0.00-0.02) 09/09/20 06:23 Sodium 141 mmol/L (136-145) 09/09/20 06:23 Potassium 4.0 mmol/L (3.5-5.1) 09/09/20 06:23 Chloride 107 mmol/L (98-107) 09/09/20 06:23 Carbon Dioxide 30 mmol/L (21-32) 09/09/20 06:23 Anion Gap 4.0 (3-11) 09/09/20 06:23 BUN 7 mg/dl (7-18) 09/09/20 06:23 Creatinine 0.67 mg/dl (0.6-1.2) 09/09/20 06:23 Est Cr Clr Drug Dosing 117.7 ml/min 09/09/20 06:23 Est GFR ( Amer) 114.7 09/09/20 06:23 Est GFR (Non-Af Amer) 99.0 09/09/20 06:23 BUN/Creatinine Ratio 10.7 (10-20) 09/09/20 06:23 Glucose 112 mg/dl (70-99) H 09/09/20 06:23 Calcium 8.5 mg/dl (8.5-10.1) 09/09/20 06:23 Magnesium 2.3 mg/dl (1.8-2.4) 09/09/20 06:23 Total Bilirubin 0.3 mg/dl (0.2-1) 09/08/20 19:50 AST 23 U/L (15-37) 09/08/20 19:50 ALT 33 U/L (12-78) 09/08/20 19:50 Alkaline Phosphatase 84 U/L (45-117) 09/08/20 19:50 Troponin I < 0.015 ng/ml (0-0.045) 09/08/20 19:50 NT-Pro-B Natriuret Pep 16 pg/ml (0-900) 09/08/20 19:50 Total Protein 7.4 gm/dl (6.4-8.2) 09/08/20 19:50 Albumin 3.6 gm/dl (3.4-5.0) 09/08/20 19:50 Globulin 3.7 gm/dl (2.5-4.0) 09/08/20 19:50 Albumin/Globulin Ratio 1.0 (0.9-2) 09/08/20 19:50 Procalcitonin 0.06 ng/ml (0-0.5) 09/08/20 19:52 TSH 0.882 uIu/ml (0.300-4.500) 09/08/20 19:50 COVID-19 Eval [facility] 09/08/20 22:22 Hepatitis C Ab Screen Neg (Neg) 09/09/20 06:23 SARS-CoV-2, RNA, NAAT NEGATIVE (NEGATIVE) 09/08/20 22:22 CTA Chest: Pulmonary vasculature: The pulmonary trunk is normal in caliber. There are no filling defects identified in main, lobar, or segmental pulmonary branches to suggest pulmonary embolus. 1. There is no evidence of pulmonary embolus in the main, lobar, or segmental pulmonary arteries. 2. There is diffuse/multifocal and predominantly groundglass consolidation seen throughout both lungs typical for an infectious/inflammatory pneumonitis. Clinical correlation will be required and radiographic follow-up to resolution is recommended. 3. There is no pleural effusion. 4. Mediastinal lymphadenopathy is nonspecific and likely on a reactive basis. 5. A 14 mm nodule is seen in the left lobe of the thyroid gland. Nonemergent thyroid ultrasound is recommended for further assessment. EKG: Sinus Tach with QTC prolongation at 503 Resident Activity Tracking Resident Involvement: Resident Care Provided Care Provided: Adult Hospital Medicine
[2020-09-09 12:09] LABS: Hematocrit (blood only) 34.2 % (37-47); Hemoglobin 11.1 g/dL (12.0-16.0)
[2020-09-09 12:34] LABS: Adenovirus PCR Not Detected (NotDetected); Bordetella parapertussis PCR Not Detected (NotDetected); Bordetella pertussis PCR Not Detected (NotDetected); Chlamydia pneumoniae PCR Not Detected (NotDetected); Coronavirus 229E PCR Not Detected (NotDetected); Coronavirus CoV-2 (COVID19)PCR Not Detected (NotDetected); Coronavirus HKU1 PCR Not Detected (NotDetected); Coronavirus NL63 PCR Not Detected (NotDetected); Coronavirus OC43PCR Not Detected (NotDetected); Human Metapneumovirus PCR Not Detected (NotDetected); Influenza A PCR Not Detected (NotDetected); Influenza B PCR Not Detected (NotDetected); Mycoplasma pneumoniae PCR Not Detected (NotDetected); Parainfluenza Virus 1 PCR Not Detected (NotDetected); Parainfluenza Virus 2 PCR Not Detected (NotDetected); Parainfluenza Virus 3 PCR Not Detected (NotDetected); Parainfluenza Virus 4 PCR Not Detected (NotDetected); Respiratory Syncytial VirusPCR Not Detected (NotDetected); Rhinovirus/Enterovirus PCR Not Detected (NotDetected)
--- NOTE | 2020-09-09 14:37 | Billing Data ---
Date of Service September 09, 2020 Coding Level of Care Code 76366 Inpt Consult Level 5
[2020-09-09] MEDS ORDERED: predniSONE 20 MG TAB PO ONE (15:15)
[2020-09-09] MEDS ORDERED: FLUTICASONE/VILANTEROL 100/25MCG 14 PUFFS/INHALER INH SCH (15:15)
--- NOTE | 2020-09-09 15:25 | Electrocardiogram Report ---
Test Reason : Blood Pressure : / mmHG Vent. Rate : 118 BPM Atrial Rate : 118 BPM P-R Int : 164 ms QRS Dur : 072 ms QT Int : 338 ms P-R-T Axes : 015 -08 004 degrees QTc Int : 473 ms Poor data quality, interpretation may be adversely affected Sinus tachycardia Poor R wave progression, consider anterior ME vs. lead placement vs. LVH Abnormal ECG When compared with ECG of 10-JAN-2015 11:47, Inverted T waves have replaced nonspecific T wave abnormality in Inferior leads Confirmed by Mark Kc ([id number]) on 09/09/2020 3:24:30 PM Referred By: REFERRED SELF Confirmed By:Lukasz Kc
--- NOTE | 2020-09-09 15:30 | Electrocardiogram Report ---
Test Reason : Blood Pressure : / mmHG Vent. Rate : 109 BPM Atrial Rate : 109 BPM P-R Int : 172 ms QRS Dur : 076 ms QT Int : 374 ms P-R-T Axes : 035 -05 012 degrees QTc Int : 503 ms Sinus tachycardia Nonspecific ST abnormality Abnormal ECG When compared with ECG of 08-SEP-2020 19:42, (unconfirmed) No significant change was found Confirmed by Mark Kc ([id number]) on 09/09/2020 3:30:04 PM Referred By: REFERRED SELF Confirmed By:Lukasz Kc
--- NOTE | 2020-09-09 15:36 | Electrocardiogram Report ---
Test Reason : Blood Pressure : / mmHG Vent. Rate : 101 BPM Atrial Rate : 101 BPM P-R Int : 176 ms QRS Dur : 076 ms QT Int : 378 ms P-R-T Axes : 034 -05 010 degrees QTc Int : 490 ms Sinus tachycardia Abnormal ECG When compared with ECG of 09-SEP-2020 08:40, (unconfirmed) No significant change was found Confirmed by Mark Kc ([id number]) on 09/09/2020 3:35:59 PM Referred By: REFERRED SELF Confirmed By:Lukasz Kc
[2020-09-09] MEDS: AZITHROMYCIN 250 MG in DEXTROSE 5% 250 ML IV SCH (15:53)
--- NOTE | 2020-09-09 17:22 | Hospitalist Progress Note ---
Date of Service September 09, 2020 Assessment & Plan (1) Acute respiratory failure with hypoxemia: Recent Hx of COVID 19 pneumonia : pt was admitted at [facility] with COVID-19 pneumonia had a week long hospital stay , received IV Remdesivir and Dexamethasone discharged home on 08/25/20 with home 02 pt reports she was recovering well at home ,was able to do daily activities , did not require 02 at rest 2 days back she developed cough , post nasal drip , shortness of breath required [address] chest shows Bibasilar infiltrate /ground glass opacity COVID 19 test negative appreciate input from pulm possible late sequela from the virus infection /superimposed bacterial infection pt started on Zithromax ( hx of Qt prolongation , follow daily EKG) and prednisone no evidence of sepsis , no fever , normal white count ordered for cough suppressant FULL CODE Admission and Anticipated Discharge Date Admission Date: September 08, 2020 Subjective Follow up visit for cough /Shortness of breath /nasal congestion : pt reports breathing a improved since admission continues to have productive cough have persistent post nasal drip no fever or chills, no headache on 3 L 02 via nasal canula ( has been on home 02 since her discharge from [facility] on 08/25) very anxious and tearful , worried that she may have to be on home 02 indefinitely Review of Systems Review of Systems: All systems reviewed & are unremarkable except as noted in HPI & below Ear, Nose, Mouth, Throat: + nasal congestion and + post nasal drip Respiratory: + cough, + dyspnea on exertion, + pain with cough and + sputum production Physical Exam Constitutional: WD/WN, vitals as above Eyes: + anicteric sclerae Neck: trachea midline, no thyromegaly Respiratory: normal respiratory effort and + cough Auscultation: + diminished lung sounds, + crackles, + rhonchi and + wheezes Cardiovascular: RRR, no murmur, no edema Gastrointestinal (Abdomen): Inspection/Auscultation: normal bowel sounds Percussion/Palpation: abdomen soft Musculoskeletal: no cyanosis or clubbing, extremities motor strength 5/5 Skin: no rashes, warm and dry Neurologic: PERRL, EOMI, accommodation nl, no face palsy, no dysarthria Psychiatric: A+Ox3, euthymic affect Results & Data Results & Data ([facility]) Vital Signs (Past 12 Hours) Vital Signs Temp Pulse Pulse Resp BP BP Pulse Ox 09/09/20 16:00 36.7 C 107 H 18 132/79 90 09/09/20 11:51 36.6 C 97 H 18 107/66 95 09/09/20 07:33 36.7 C 94 H 18 100/61 94 09/09/20 07:12 96 H
[2020-09-09] MEDS ORDERED: CETIRIZINE HCL 10 MG TABLET PO ONE (18:28)
[2020-09-09] MEDS ORDERED: FLUTICASONE PROPIONATE NA SPR 16 GM BTL ONE (18:45)
[2020-09-09] MEDS ORDERED: PSEUDOEPHEDRINE HCL 30 MG TAB PO ONE (18:45)
[2020-09-09] MEDS: diphenhydrAMINE Capsule 25 MG CAP PO PRN (20:41)
[2020-09-09] MEDS: guaiFENesin/CODEINE 100MG/10MG 5ML UDC PO PRN (20:41)
[2020-09-09] MEDS ORDERED: levoFLOXacin/D5W 750 MG/150 ML BAG IV SCH (21:00)
[2020-09-10] MEDS: ACETAMINOPHEN 325 MG TAB PO PRN ×3 (03:47→21:46)
[2020-09-10] MEDS ORDERED: BUTALBITAL/ACETAMIN/CAFFEINE TAB PO STA ×2 (05:04→06:04)
[2020-09-10] MEDS ORDERED: KETOROLAC TROMETHAMINE 15 MG/ML VIAL IV ONE (05:14)
[2020-09-10] MEDS: FLUTICASONE/VILANTEROL 100/25MCG 14 PUFFS/INHALER INH SCH (08:33)
[2020-09-10] MEDS: FLUTICASONE PROPIONATE NA SPR 16 GM BTL SCH ×2 (08:34→20:21)
[2020-09-10] MEDS: predniSONE 20 MG TAB PO SCH (08:34)
[2020-09-10] MEDS: APIXABAN 2.5 MG TAB PO SCH ×2 (08:34→20:21)
[2020-09-10] MEDS: BENZONATATE 100 MG CAPSULE PO SCH ×3 (08:35→20:21)
[2020-09-10] MEDS: CETIRIZINE HCL 10 MG TABLET PO SCH (08:35)
[2020-09-10] MEDS: PSEUDOEPHEDRINE HCL 30 MG TAB PO PRN (08:36)
--- NOTE | 2020-09-10 09:21 | Pulmonology Progress Note ---
Date of Service September 10, 2020 Assessment & Plan (1) Dyspnea: 55 yo F with recent diagnosis of COVID19 Pneumonia, discharged from [facility] on 08/25/20 who presented to the ER last night after having worsening shortness of breath and increasing supplemental oxygen requirement. 1) Dyspnea - COVID19 Negative on readmission - imaging from [facility] reviewed, no CT Chest found. CXR found. - in comparison to imaging performed here, appears that patient has ongoing fibrosclerotic disease in her lungs and groundglass opacities - Differential includes viral pneumonia vs bacterial pneumonia superimposed on fibrotic lung changes from COVID19 vs interstitial lung disease vs diffuse alveolar hemorrhage - Viral/Atypical Pneumonia - Urine Legionella Antigen, HIV pending - Biofire negative, CRP elevated with normal ESR = acute inflammation - Started on Azithromycin for 5 days, 40 mg prednisone AM x 7 days -Bacterial Pneumonia - WBC/procal WNL, afebrile, less likely to be bacterial - d/c ceftriaxone given low suspicion for typical pneumonia. - ESR WNL, LDH borderinline, less likely bacterial - Alveolar Hemorrhage - has been on eliquis for factor V leiden mutations; with lower Hg alveolar hemorrhage secondary to viral infection also possible. - Less likely without hemoptysis. Hg stable at 11.1. - Given improvement in subjective symptoms and objectively increased ability to use incentive spirometer and walk with oxygen, patient appears to be recovering and on the path to discharge. On 3L NC while walking/exercising at home, not on O2 at rest. - Continue Azithromycin and steroid burst as above. Can continue codeine for cough suppression and control. - Fluticasone daily inhaler may be necessary for daily control going forward - would recommend Pulm follow up in a few months for PFTs and reassessment of lung disease Dyspnea type: dyspnea on exertion Qualified Code(s): R06.00 - Dyspnea, unspecified Admission and Anticipated Discharge Date Admission Date: September 08, 2020 Supervising Physician Co-Signing Physician Notes Dr. Jalloh was the resident-physician during care of patient. I separately evaluated patient for camilo portions of the history and the exam. I was present during the critical portion of medical decision making, and I discussed the case with the resident. I generally agree with the findings and plan except for any additions/exceptions noted. Continue therapies as outlined above. Will need a repeat CT chest in 6 weeks. She will need pulmonary follow-up as an outpatient. Her cough is still present, but it has substantially improved since yesterday. I would recommend weaning her oxygen to maintain saturations above 92%. She would benefit from an outpatient polysomnography to evaluate for sleep disordered breathing. Subjective Feeling much improved this morning. says she's able to take a deeper breath without coughing as much. Feels that her breathing is easier. Was able to walk 5 laps around the hallways yesterday with oxygen on with her roommate. Review of Systems Constitutional: no fever, no chills and no body aches Respiratory: + cough; no pain on inspiration Cardiovascular: no chest pain, no dyspnea on exertion (while wearing oxygen), no orthopnea, no palpitations, no lightheadedness and no edema Gastrointestinal: no abdominal pain Physical Exam Constitutional: + obese; no acute distress Neck: trachea midline Respiratory: normal respiratory effort, + cough and able to speak in complete sentences; no respiratory distress, no labored breathing, no retractions, does not use accessory muscles, no audible wheezes and no nasal flaring Auscultation: lungs clear to auscultation bilaterally; no crackles, no rales, no rhonchi, no wheezes, no pleural rub and no bronchial breath sounds Cardiovascular: Rate/Rhythm: regular rate and regular rhythm Extremities: no calf tenderness and no edema Results & Data Results & Data ([facility]) Vital Signs (Past 12 Hours) Vital Signs Temp Pulse Pulse Resp BP BP Pulse Ox 09/10/20 07:33 93 H 09/10/20 07:29 36.6 C 89 18 120/79 95 09/10/20 06:06 120/84 09/10/20 03:53 36.6 C 82 20 95/62 L 99 09/10/20 01:38 99 H 09/10/20 00:59 100/65 09/10/20 00:04 36.5 C 105 H 20 97/62 L 96 Laboratory Results WBC 3.67 K/uL (4.8-10.8) L 09/09/20 06:23 RBC 3.85 M/uL (4.2-5.4) L 09/09/20 06:23 Hgb 11.1 g/dL (12.0-16.0) L 09/09/20 12:00 Hct 34.2 % (37-47) L 09/09/20 12:00 MCV 88.3 fL (80-100) 09/09/20 06:23 MCH 28.6 pg (25-34) 09/09/20 06:23 MCHC 32.4 g/dL (32-36) 09/09/20 06:23 RDW Std Deviation 48.8 fL (36.4-46.3) H 09/09/20 06:23 RDW Coeff of Ayanna 15.3 % (11.5-14.5) H 09/09/20 06:23 Plt Count 181 K/uL (130-400) 09/09/20 06:23 MPV 9.8 fL (7.4-10.4) 09/09/20 06:23 Immature Gran % (Auto) 0.3 % 09/09/20 06:23 Neut % (Auto) 53.7 % 09/09/20 06:23 Lymph % (Auto) 31.3 % 09/09/20 06:23 [place] % (Auto) 9.0 % 09/09/20 06:23 Eos % (Auto) 5.4 % 09/09/20 06:23 Baso % (Auto) 0.3 % 09/09/20 06:23 Neut # (Auto) 1.97 K/uL (1.4-6.5) 09/09/20 06:23 Lymph # (Auto) 1.15 K/uL (1.2-3.4) L 09/09/20 06:23 [place] # (Auto) 0.33 K/uL (0.11-0.59) 09/09/20 06:23 Eos # (Auto) 0.20 K/uL (0-0.5) 09/09/20 06:23 Baso # (Auto) 0.01 K/uL (0-0.2) 09/09/20 06:23 Immature Gran # (Auto) 0.01 K/uL (0.00-0.02) 09/09/20 06:23 ESR 18 mm/hr (0-21) 09/09/20 06:23 Sodium 141 mmol/L (136-145) 09/09/20 06:23 Potassium 4.0 mmol/L (3.5-5.1) 09/09/20 06:23 Chloride 107 mmol/L (98-107) 09/09/20 06:23 Carbon Dioxide 30 mmol/L (21-32) 09/09/20 06:23 Anion Gap 4.0 (3-11) 09/09/20 06:23 BUN 7 mg/dl (7-18) 09/09/20 06:23 Creatinine 0.67 mg/dl (0.6-1.2) 09/09/20 06:23 Est Cr Clr Drug Dosing 117.7 ml/min 09/09/20 06:23 Est GFR ( Amer) 114.7 09/09/20 06:23 Est GFR (Non-Af Amer) 99.0 09/09/20 06:23 BUN/Creatinine Ratio 10.7 (10-20) 09/09/20 06:23 Glucose 112 mg/dl (70-99) H 09/09/20 06:23 Calcium 8.5 mg/dl (8.5-10.1) 09/09/20 06:23 Magnesium 2.3 mg/dl (1.8-2.4) 09/09/20 06:23 Total Bilirubin 0.3 mg/dl (0.2-1) 09/08/20 19:50 AST 23 U/L (15-37) 09/08/20 19:50 ALT 33 U/L (12-78) 09/08/20 19:50 Alkaline Phosphatase 84 U/L (45-117) 09/08/20 19:50 Lactate Dehydrogenase 244 U/L (84-246) 09/09/20 06:23 Troponin I < 0.015 ng/ml (0-0.045) 09/08/20 19:50 C-Reactive Protein 2.80 mg/dl (0-0.29) H 09/09/20 06:23 NT-Pro-B Natriuret Pep 16 pg/ml (0-900) 09/08/20 19:50 Total Protein 7.4 gm/dl (6.4-8.2) 09/08/20 19:50 Albumin 3.6 gm/dl (3.4-5.0) 09/08/20 19:50 Globulin 3.7 gm/dl (2.5-4.0) 09/08/20 19:50 Albumin/Globulin Ratio 1.0 (0.9-2) 09/08/20 19:50 Procalcitonin 0.06 ng/ml (0-0.5) 09/08/20 19:52 TSH 0.882 uIu/ml (0.300-4.500) 09/08/20 19:50 Nasal Screen MRSA (PCR) Negative (Negative) 09/09/20 09:24 Adenovirus (PCR) Not Detected (NotDetected) 09/09/20 11:20 B. pertussis DNA (PCR) Not Detected (NotDetected) 09/09/20 11:20 B.parapertussis DNA PCR Not Detected (NotDetected) 09/09/20 11:20 C. pneumoniae DNA (PCR) Not Detected (NotDetected) 09/09/20 11:20 Coronavirus OC43 (PCR) Not Detected (NotDetected) 09/09/20 11:20 Coronavirus HKU1 (PCR) Not Detected (NotDetected) 09/09/20 11:20 Coronavirus 229E (PCR) Not Detected (NotDetected) 09/09/20 11:20 COVID-19 Eval Order Covid19 IDNow [facility] 09/08/20 22:22 COVID-19 PCR Not Detected (NotDetected) 09/09/20 11:20 Coronavirus NL63 (PCR) Not Detected (NotDetected) 09/09/20 11:20 Hepatitis C Ab Screen Neg (Neg) 09/09/20 06:23 Human Metapneumovir PCR Not Detected (NotDetected) 09/09/20 11:20 Influenza Type A (PCR) Not Detected (NotDetected) 09/09/20 11:20 Influenza Type B (PCR) Not Detected (NotDetected) 09/09/20 11:20 M. pneumoniae (PCR) Not Detected (NotDetected) 09/09/20 11:20 Parainfluenza 1 (PCR) Not Detected (NotDetected) 09/09/20 11:20 Parainfluenza 2 (PCR) Not Detected (NotDetected) 09/09/20 11:20 Parainfluenza 3 (PCR) Not Detected (NotDetected) 09/09/20 11:20 Parainfluenza 4 (PCR) Not Detected (NotDetected) 09/09/20 11:20 RSV (PCR) Not Detected (NotDetected) 09/09/20 11:20 Entero/Rhino (PCR) Not Detected (NotDetected) 09/09/20 11:20 SARS-CoV-2, RNA, NAAT NEGATIVE (NEGATIVE) 09/08/20 22:22 Resident Activity Tracking Resident Involvement: Resident Care Provided Care Provided: Adult [facility] Medicine
--- NOTE | 2020-09-10 12:27 | Billing Data ---
Date of Service September 10, 2020 Coding Level of Care Code 71184 Initial Inpt Care Lvl 2
--- NOTE | 2020-09-10 14:10 | Electrocardiogram Report ---
Test Reason : Blood Pressure : / mmHG Vent. Rate : 092 BPM Atrial Rate : 092 BPM P-R Int : 190 ms QRS Dur : 078 ms QT Int : 396 ms P-R-T Axes : 050 -01 017 degrees QTc Int : 489 ms Normal sinus rhythm Poor R wave progression, consider anterior VT vs. lead placement vs. LVH Abnormal ECG When compared with ECG of 09-SEP-2020 10:30, No significant change was found Confirmed by Mark Kc ([id number]) on 09/10/2020 2:10:12 PM Referred By: REFERRED SELF Confirmed By:Lukasz Kc
[2020-09-10] MEDS: AZITHROMYCIN 250 MG in DEXTROSE 5% 250 ML IV SCH (15:43)
--- NOTE | 2020-09-10 19:11 | Hospitalist Progress Note ---
Date of Service September 10, 2020 Assessment & Plan (1) Acute respiratory failure with hypoxemia: Present on admission with SOB and pneumonia Hx of COVID 19 pneumonia where she was rencently admitted at [facility] During her hospital course at [place], she received IV Remdesivir and Dexamethasone; then discharged home on 08/25/20 with home 02 CTA chest showed no evidence of pulmonary embolus in the main, lobar, or segmental pulmonary arteries. There is diffuse/multifocal and predominantly groundglass consolidation seen throughout both lungs typical for an infectious/inflammatory pneumonitis. Pulmonology on board Started on Azithromycin for 5 days, 40 mg prednisone AM x 7 days IV Rocephin discontinued since procalcitonin/WNC wnl, very low suspicious for bacterial pneumonia Continue to wean on oxygen supplement Continue respiratory treatment Continue monitor closely Factor V leiden mutation Continue eliquis 2.5 mg BID Thyroid nodule CT showed a14 mm nodule is seen in the left lobe of the thyroid gland. Will need outpatient thyroid ultrasound DVT px on Eliquis FULL CODE Admission and Anticipated Discharge Date Admission Date: September 08, 2020 Subjective Pt was seen and examined Sitting in chair with no distress Pt said that her breathing feels lightly better today She said that she is trying to cough the phelgm up Denies any chest pain, palpitation, dizziness and fever Physical Exam Physical Exam: General- No acute distress Head- atraumatic Eyes- PERRL, EOMI, ENT- oropharynx clear Neck- supple, no JVD Lungs- clear to auscultation Heart- regular rhythm; no murmur Abdomen- normal bowel sounds, soft, nontender Extremities- no calf tenderness Neuro- alert, oriented x 3; PERRL, EOMI; no facial palsy; no dysarthria Skin- warm & dry Results & Data Results & Data ([facility]) Vital Signs (Past 12 Hours) Vital Signs Temp Pulse Pulse Resp BP Pulse Ox 09/10/20 16:00 102 H 09/10/20 11:38 36.9 C 104 H 18 99/56 L 93 09/10/20 07:33 93 H 09/10/20 07:29 36.6 C 89 18 120/79 95
[2020-09-10] MEDS: diphenhydrAMINE Capsule 25 MG CAP PO PRN (21:47)
[2020-09-11 00:34] LABS: Appearance Urine Clear (Clear); Bilirubin Urine Negative (Negative); Blood Urine Negative (Negative); Color Urine Yellow; Glucose Urine UA Negative (Negative); Ketones Urine Negative (Negative); Leukocyte Esterase Urine Negative (Negative); Nitrite Urine Negative (Negative); Protein Urine Negative (Negative); Specific Gravity Urine 1.007 (1.000-1.030); Urobilinogen Urine Negative (Negative)
[2020-09-11] MEDS ORDERED: PHENAZOPYRIDINE HCL 100 MG TAB PO PRN (00:52)
[2020-09-11] MEDS: FLUTICASONE/VILANTEROL 100/25MCG 14 PUFFS/INHALER INH SCH (08:01)
[2020-09-11] MEDS: PSEUDOEPHEDRINE HCL 30 MG TAB PO PRN (08:01)
[2020-09-11] MEDS: BENZONATATE 100 MG CAPSULE PO SCH ×3 (08:02→21:26)
[2020-09-11] MEDS: predniSONE 20 MG TAB PO SCH (08:02)
[2020-09-11] MEDS: CETIRIZINE HCL 10 MG TABLET PO SCH (08:03)
[2020-09-11] MEDS: FLUTICASONE PROPIONATE NA SPR 16 GM BTL SCH ×2 (08:04→21:26)
[2020-09-11] MEDS: APIXABAN 2.5 MG TAB PO SCH ×2 (08:04→21:26)
[2020-09-11] MEDS: ACETAMINOPHEN 325 MG TAB PO PRN ×2 (08:09→15:33)
[2020-09-11] MEDS: ADVANCED PROBIOTIC 1250 MG CAPSULE PO SCH (10:36)
--- NOTE | 2020-09-11 13:01 | Electrocardiogram Report ---
Test Reason : Blood Pressure : / mmHG Vent. Rate : 082 BPM Atrial Rate : 082 BPM P-R Int : 196 ms QRS Dur : 080 ms QT Int : 406 ms P-R-T Axes : 051 005 027 degrees QTc Int : 474 ms Normal sinus rhythm Low voltage QRS Abnormal ECG When compared with ECG of 10-SEP-2020 06:39, No significant change was found Confirmed by Mark Kc ([id number]) on 09/11/2020 1:01:19 PM Referred By: REFERRED SELF Confirmed By:Lukasz Kc
[2020-09-11] MEDS: AZITHROMYCIN 250 MG in DEXTROSE 5% 250 ML IV SCH (15:48)
[2020-09-11] MEDS: guaiFENesin/CODEINE 100MG/10MG 5ML UDC PO PRN (19:31)
--- NOTE | 2020-09-11 19:35 | Hospitalist Progress Note ---
Date of Service September 11, 2020 Assessment & Plan (1) Acute respiratory failure with hypoxemia: Present on admission with SOB and pneumonia Hx of COVID 19 pneumonia where she was rencently admitted at [facility] During her hospital course at [place], she received IV Remdesivir and Dexamethasone; then discharged home on 08/25/20 with home 02 CTA chest showed no evidence of pulmonary embolus in the main, lobar, or segmental pulmonary arteries. There is diffuse/multifocal and predominantly groundglass consolidation seen throughout both lungs typical for an infectious/inflammatory pneumonitis. Pulmonology on board Continue Azithromycin to complete 5 days, 40 mg prednisone AM x 7 days IV Rocephin discontinued since procalcitonin/WNC wnl, very low suspicious for bacterial pneumonia Sputum cx and blood cx showed no grow Continue to wean on oxygen supplement Continue respiratory treatment Continue monitor closely Factor V leiden mutation Continue eliquis 2.5 mg BID Thyroid nodule CT showed a14 mm nodule is seen in the left lobe of the thyroid gland. Will need outpatient thyroid ultrasound DVT px on Eliquis FULL CODE Admission and Anticipated Discharge Date Admission Date: September 08, 2020 Subjective Pt was seen and examined Sitting in chair with no distress Pt said that her breathing continue to improve She said that she continue to cough Denies any chest pain, palpitation, dizziness and fever Physical Exam Physical Exam: General- No acute distress Head- atraumatic Eyes- PERRL, EOMI, ENT- oropharynx clear Neck- supple, no JVD Lungs- clear to auscultation Heart- regular rhythm; no murmur Abdomen- normal bowel sounds, soft, nontender Extremities- no calf tenderness Neuro- alert, oriented x 3; PERRL, EOMI; no facial palsy; no dysarthria Skin- warm & dry Results & Data Results & Data ([facility]) Vital Signs (Past 12 Hours) Vital Signs Temp Pulse Pulse Resp BP Pulse Ox 09/11/20 19:18 36.7 C 113 H 20 134/85 96 09/11/20 16:48 107 H 09/11/20 16:00 36.6 C 106 H 18 120/75 95 09/11/20 11:54 36.9 C 87 18 111/74 97 09/11/20 08:30 81 09/11/20 08:04 36.5 C 92 H 18 121/72 100
[2020-09-11] MEDS ORDERED: SODIUM CHLORIDE 0.9% 500 ML IV ONE (19:38)
[2020-09-11] MEDS ORDERED: oxyCODONE HCL IR 5 MG TAB (IMMEDIATE RELEASE) PO PRN (19:40)
[2020-09-11] MEDS: diphenhydrAMINE Capsule 25 MG CAP PO PRN (20:07)
[2020-09-11 20:39] LABS: BUN Creatinine Ratio 12.6 (10-20); Calcium 8.8 mg/dl (8.5-10.1); Creatinine Clr Calc Pharmacy 79.3 ml/min; Est GFR (African American) 74.4; Est GFR (Non-African American) 64.2; Potassium 3.9 mmol/L (3.5-5.1)
[2020-09-11] MEDS ORDERED: BUTALBITAL/ACETAMIN/CAFFEINE TAB PO ONE (21:30)
[2020-09-12] MEDS: ACETAMINOPHEN 325 MG TAB PO PRN ×2 (04:33→08:01)
[2020-09-12 06:36] LABS: Creatinine Clr Calc Pharmacy 113.8 ml/min; Est GFR (African American) 113.6
--- NOTE | 2020-09-12 07:49 | Electrocardiogram Report ---
Test Reason : Blood Pressure : / mmHG Vent. Rate : 084 BPM Atrial Rate : 084 BPM P-R Int : 190 ms QRS Dur : 078 ms QT Int : 400 ms P-R-T Axes : 031 -12 000 degrees QTc Int : 472 ms Normal sinus rhythm possible Inferior infarct , age undetermined Abnormal ECG When compared with ECG of 11-SEP-2020 06:50, No significant change was found Confirmed by Mark Kc ([id number]) on 09/12/2020 7:48:32 AM Referred By: REFERRED SELF Confirmed By:Lukasz Kc
[2020-09-12] MEDS: CETIRIZINE HCL 10 MG TABLET PO SCH (07:56)
[2020-09-12] MEDS: FLUTICASONE PROPIONATE NA SPR 16 GM BTL SCH (07:56)
[2020-09-12] MEDS: predniSONE 20 MG TAB PO SCH (07:56)
[2020-09-12] MEDS: FLUTICASONE/VILANTEROL 100/25MCG 14 PUFFS/INHALER INH SCH (07:56)
[2020-09-12] MEDS: APIXABAN 2.5 MG TAB PO SCH (07:57)
[2020-09-12] MEDS: ADVANCED PROBIOTIC 1250 MG CAPSULE PO SCH (07:57)
[2020-09-12] MEDS: BENZONATATE 100 MG CAPSULE PO SCH ×2 (07:57→13:51)
--- NOTE | 2020-09-12 10:21 | Pulmonology Progress Note ---
Date of Service September 12, 2020 Assessment & Plan (1) Dyspnea: 55 yo F with recent diagnosis of COVID19 Pneumonia, discharged from [facility] on 08/25/20 who presented to the ER last night after having worsening shortness of breath and increasing supplemental oxygen requirement. 1) Dyspnea - COVID19 Negative on readmission - imaging from [facility] reviewed, no CT Chest found. CXR found. - in comparison to imaging performed here, appears that patient has ongoing fibrosclerotic disease in her lungs and groundglass opacities - Most likely secondary to atypical infection superimposed on COVID lung injury. - Finish azithromycin 5 day course, prednisone 7 day course. - Continue use of incentive spirometer and flutter valve at home to maintain expectoration of mucus. - Can continue codeine for cough suppression PRN during coughing fits. - Fluticasone daily inhaler may be necessary for daily control going forward - Repeat CT Chest in 6 weeks, follow up with pulmonology as outpatient. - okay to discharge home from pulm standpoint. Thank you for allowing us to participate in the care of this interesting patient. Pulmonary will sign off at this time. Dyspnea type: dyspnea on exertion Qualified Code(s): R06.00 - Dyspnea, unspecified Admission and Anticipated Discharge Date Admission Date: September 08, 2020 Supervising Physician Co-Signing Physician Notes Dr. Jalloh was the resident-physician during care of patient. I separately evaluated patient for camilo portions of the history and the exam. I was present during the critical portion of medical decision making, and I discussed the case with the resident. I generally agree with the findings and plan except for any additions/exceptions noted. Patient is continuing to do better. She has residual inflammation from her recent COVID-19 infection. I think she can be discharged home and complete her 7 days total of prednisone at home. She can be discharged home with the Breo Ellipta inhaler. She will need PFTs and a repeat CT chest as an outpatient. Weight loss is recommended. Polysomnography would be beneficial as well as an outpatient. Home oxygen evaluation prior to discharge. Pulmonary will sign off at this time. Thank you for the consult. Please call with questions. Subjective Doing considerably better today. States she is able to hold incentive spirometer for longer and is coughing up lots more mucus than before. She is also able to breathe in deeper than she was able to before without having to cough or feeling "stuck'. Review of Systems Constitutional: no body aches and no weakness Respiratory: + cough and + dyspnea; no hemoptysis, no pain on inspiration and no wheezing Cardiovascular: + dyspnea on exertion; no chest pain with activity, no palpitations and no edema Physical Exam Constitutional: + obese; no acute distress sitting up in chair, visibly in less distress of breathing and more comfortable Neck: trachea midline Respiratory: normal respiratory effort, + cough and able to speak in complete sentences; no respiratory distress, no labored breathing, no retractions, does not use accessory muscles, no audible wheezes and no nasal flaring Auscultation: lungs clear to auscultation bilaterally; no crackles, no rales, no rhonchi, no wheezes, no pleural rub and no bronchial breath sounds Breathing comfortably on 2L NC Cardiovascular: Rate/Rhythm: regular rate and regular rhythm Extremities: no calf tenderness and no edema Results & Data Results & Data ([facility]) Vital Signs (Past 12 Hours) Vital Signs Temp Pulse Pulse Resp BP Pulse Ox Pulse Ox 09/12/20 07:40 85 09/12/20 07:24 36.9 C 87 18 106/74 93 09/12/20 04:46 36.6 C 84 20 98/64 L 95 09/12/20 01:14 96 09/11/20 23:05 36.7 C 112 H 100 H 20 125/84 96 Laboratory Results WBC 3.67 K/uL (4.8-10.8) L 09/09/20 06:23 RBC 3.85 M/uL (4.2-5.4) L 09/09/20 06:23 Hgb 11.1 g/dL (12.0-16.0) L 09/09/20 12:00 Hct 34.2 % (37-47) L 09/09/20 12:00 MCV 88.3 fL (80-100) 09/09/20 06:23 MCH 28.6 pg (25-34) 09/09/20 06:23 MCHC 32.4 g/dL (32-36) 09/09/20 06:23 RDW Std Deviation 48.8 fL (36.4-46.3) H 09/09/20 06:23 RDW Coeff of Ayanna 15.3 % (11.5-14.5) H 09/09/20 06:23 Plt Count 181 K/uL (130-400) 09/09/20 06:23 MPV 9.8 fL (7.4-10.4) 09/09/20 06:23 Immature Gran % (Auto) 0.3 % 09/09/20 06:23 Neut % (Auto) 53.7 % 09/09/20 06:23 Lymph % (Auto) 31.3 % 09/09/20 06:23 [place] % (Auto) 9.0 % 09/09/20 06:23 Eos % (Auto) 5.4 % 09/09/20 06:23 Baso % (Auto) 0.3 % 09/09/20 06:23 Neut # (Auto) 1.97 K/uL (1.4-6.5) 09/09/20 06:23 Lymph # (Auto) 1.15 K/uL (1.2-3.4) L 09/09/20 06:23 [place] # (Auto) 0.33 K/uL (0.11-0.59) 09/09/20 06:23 Eos # (Auto) 0.20 K/uL (0-0.5) 09/09/20 06:23 Baso # (Auto) 0.01 K/uL (0-0.2) 09/09/20 06:23 Immature Gran # (Auto) 0.01 K/uL (0.00-0.02) 09/09/20 06:23 ESR 18 mm/hr (0-21) 09/09/20 06:23 Sodium 140 mmol/L (136-145) 09/11/20 20:03 Potassium 3.9 mmol/L (3.5-5.1) 09/11/20 20:03 Chloride 107 mmol/L (98-107) 09/11/20 20:03 Carbon Dioxide 28 mmol/L (21-32) 09/11/20 20:03 Anion Gap 6.0 (3-11) 09/11/20 20:03 BUN 12 mg/dl (7-18) 09/11/20 20:03 Creatinine 0.69 mg/dl (0.6-1.2) D 09/12/20 05:49 Est Cr Clr Drug Dosing 113.8 ml/min 09/12/20 05:49 Est GFR ( Amer) 113.6 09/12/20 05:49 Est GFR (Non-Af Amer) 98.0 09/12/20 05:49 BUN/Creatinine Ratio 12.6 (10-20) 09/11/20 20:03 Glucose 131 mg/dl (70-99) H 09/11/20 20:03 Calcium 8.8 mg/dl (8.5-10.1) 09/11/20 20:03 Magnesium 2.0 mg/dl (1.8-2.4) 09/11/20 20:03 Total Bilirubin 0.3 mg/dl (0.2-1) 09/08/20 19:50 AST 23 U/L (15-37) 09/08/20 19:50 ALT 33 U/L (12-78) 09/08/20 19:50 Alkaline Phosphatase 84 U/L (45-117) 09/08/20 19:50 Lactate Dehydrogenase 244 U/L (84-246) 09/09/20 06:23 Troponin I < 0.015 ng/ml (0-0.045) 09/08/20 19:50 C-Reactive Protein 2.80 mg/dl (0-0.29) H 09/09/20 06:23 NT-Pro-B Natriuret Pep 16 pg/ml (0-900) 09/08/20 19:50 Total Protein 7.4 gm/dl (6.4-8.2) 09/08/20 19:50 Albumin 3.6 gm/dl (3.4-5.0) 09/08/20 19:50 Globulin 3.7 gm/dl (2.5-4.0) 09/08/20 19:50 Albumin/Globulin Ratio 1.0 (0.9-2) 09/08/20 19:50 Procalcitonin 0.06 ng/ml (0-0.5) 09/08/20 19:52 TSH 0.882 uIu/ml (0.300-4.500) 09/08/20 19:50 Urine Color Yellow 09/11/20 00:25 Urine Appearance Clear (Clear) 09/11/20 00:25 Urine pH 6.0 (4.5-7.5) 09/11/20 00:25 Ur Specific [place] 1.007 (1.000-1.030) 09/11/20 00:25 Urine Protein Negative (Negative) 09/11/20 00:25 Urine Glucose (UA) Negative (Negative) 09/11/20 00:25 Urine Ketones Negative (Negative) 09/11/20 00:25 Urine Blood Negative (Negative) 09/11/20 00:25 Urine Nitrite Negative (Negative) 09/11/20 00:25 Urine Bilirubin Negative (Negative) 09/11/20 00:25 Urine Urobilinogen Negative (Negative) 09/11/20 00:25 Ur Leukocyte Esterase Negative (Negative) 09/11/20 00:25 Nasal Screen MRSA (PCR) Negative (Negative) 09/09/20 09:24 Adenovirus (PCR) Not Detected (NotDetected) 09/09/20 11:20 B. pertussis DNA (PCR) Not Detected (NotDetected) 09/09/20 11:20 B.parapertussis DNA PCR Not Detected (NotDetected) 09/09/20 11:20 C. pneumoniae DNA (PCR) Not Detected (NotDetected) 09/09/20 11:20 Coronavirus OC43 (PCR) Not Detected (NotDetected) 09/09/20 11:20 Coronavirus HKU1 (PCR) Not Detected (NotDetected) 09/09/20 11:20 Coronavirus 229E (PCR) Not Detected (NotDetected) 09/09/20 11:20 COVID-19 Eval Order Covid19 IDNow [facility] 09/08/20 22:22 COVID-19 PCR Not Detected (NotDetected) 09/09/20 11:20 Coronavirus NL63 (PCR) Not Detected (NotDetected) 09/09/20 11:20 Hepatitis C Ab Screen Neg (Neg) 09/09/20 06:23 Human Metapneumovir PCR Not Detected (NotDetected) 09/09/20 11:20 Influenza Type A (PCR) Not Detected (NotDetected) 09/09/20 11:20 Influenza Type B (PCR) Not Detected (NotDetected) 09/09/20 11:20 Urine Legionella Ag SEE NOTE 09/09/20 11:20 M. pneumoniae (PCR) Not Detected (NotDetected) 09/09/20 11:20 Parainfluenza 1 (PCR) Not Detected (NotDetected) 09/09/20 11:20 Parainfluenza 2 (PCR) Not Detected (NotDetected) 09/09/20 11:20 Parainfluenza 3 (PCR) Not Detected (NotDetected) 09/09/20 11:20 Parainfluenza 4 (PCR) Not Detected (NotDetected) 09/09/20 11:20 RSV (PCR) Not Detected (NotDetected) 09/09/20 11:20 Entero/Rhino (PCR) Not Detected (NotDetected) 09/09/20 11:20 SARS-CoV-2, RNA, NAAT NEGATIVE (NEGATIVE) 09/08/20 22:22 Resident Activity Tracking Resident Involvement: Resident Care Provided Care Provided: Adult Hospital Medicine
--- NOTE | 2020-09-12 11:38 | Billing Data ---
Date of Service September 12, 2020 Coding Level of Care Code 17404 Initial Inpt Care Lvl 2
--- NOTE | 2020-09-12 15:48 | Hospitalist Progress Note ---
Date of Service September 12, 2020 Assessment & Plan (1) Acute respiratory failure with hypoxemia: Present on admission with SOB and pneumonia Hx of COVID 19 pneumonia where she was rencently admitted at [facility] During her hospital course at [place], she received IV Remdesivir and Dexamethasone; then discharged home on 08/25/20 with home 02 CTA chest showed no evidence of pulmonary embolus in the main, lobar, or segmental pulmonary arteries. There is diffuse/multifocal and predominantly groundglass consolidation seen throughout both lungs typical for an infectious/inflammatory pneumonitis. Pulmonology on board Continue Azithromycin to complete 5 days, 40 mg prednisone 40mg x 7 days IV Rocephin discontinued since procalcitonin/WNC wnl, very low suspicious for bacterial pneumonia Sputum cx and blood cx showed no grow Continue to wean on oxygen supplement Continue respiratory treatment Fluticasone daily inhaler may be necessary for daily control going forward Continue use of incentive spirometer and flutter valve at home to maintain expectoration of mucus. 2 step done today that suggests pt required 1 L NC with exertion Saturated well on RA at rest Will need a repeat CT chest in 6 weeks Ok from pulmonology standpoint to discharge home Follow up with pulmonology Factor V leiden mutation Continue eliquis 2.5 mg BID Thyroid nodule CT showed a 14 mm nodule is seen in the left lobe of the thyroid gland. Will need outpatient thyroid ultrasound DVT px on Eliquis FULL CODE Disposition Will discharge home today Admission and Anticipated Discharge Date Admission Date: September 08, 2020 Subjective Follow up for respiratory distress Pt was seen and examined sitting in chair with no distress Pt said that she feels much better She is saturated well on RA She said that she is coughing less Denies any chest pain, palpitation, dizziness and SOB Physical Exam Physical Exam: General- No acute distress Head- atraumatic Eyes- PERRL, EOMI, ENT- oropharynx clear Neck- supple, no JVD Lungs- clear to auscultation Heart- regular rhythm; no murmur Abdomen- normal bowel sounds, soft, nontender Extremities- no calf tenderness Neuro- alert, oriented x 3; PERRL, EOMI; no facial palsy; no dysarthria Skin- warm & dry Results & Data Results & Data ([facility]) Vital Signs (Past 12 Hours) Vital Signs Temp Pulse Pulse Pulse Pulse Pulse Pulse 09/12/20 15:14 36.7 C 96 H 09/12/20 11:50 115 H 118 H 110 H 105 H 09/12/20 11:12 36.7 C 100 H 09/12/20 07:40 85 09/12/20 07:24 36.9 C 87 09/12/20 04:46 36.6 C 84 Resp Resp Resp Resp BP Pulse Ox Pulse Ox 09/12/20 15:14 19 114/76 96 09/12/20 11:50 21 19 18 90 09/12/20 11:12 18 122/78 92 09/12/20 07:40 09/12/20 07:24 18 106/74 93 09/12/20 04:46 20 98/64 L 95 Pulse Ox Pulse Ox Pulse Ox 09/12/20 15:14 09/12/20 11:50 86 L 94 95 09/12/20 11:12 09/12/20 07:40 09/12/20 07:24 09/12/20 04:46
[2020-09-12] MEDS ORDERED: AZITHROMYCIN 250 MG TAB PO ONE (16:07)
[2020-09-12] MEDS: AZITHROMYCIN 250 MG in DEXTROSE 5% 250 ML IV SCH (16:12)
--- NOTE | 2020-09-18 17:09 | Discharge Summary ---
Date of Service September 12, 2020 Admission HPI Per Admitting Provider CHIEF COMPLAINT: Shortness of breath, recent COVID. HISTORY OF PRESENT ILLNESS: A 55-year-old female with past medical history significant for hyperlipidemia, mild persistent asthma, allergic rhinitis, history of prolonged QT, obesity, sciatica, migraines, factor V Leiden mutation, , dysthymia. The patient presents with ongoing shortness of breath and cough. The patient was diagnosed with COVID 19 on 08/08/2020 and she was admitted to [facility] on August 15, and got remdesivir and dexamethasone and was discharged on 08/23/2020 with home oxygen while ambulating. The patient is using oxygen. She is ambulating at home when she is using oxygen, but last few days she is having again low-grade fever and also her oxygen saturation going down into 80s when she is ambulating with minimal exertion and she also requiring oxygen while sleeping and she told her PCP and she was prescribed cefuroxime but her symptoms are not getting better and she came here. Here COVID test is negative. The patient's labs are okay, CTA chest, no PE, but showed bilateral infiltrates. Got antibiotics for possible superimposed bacterial infection. The patient having lot of cough and once in a while she gets greenish phlegm. Denies any chest pain, no loss of sense of smell or taste. Appetite is okay. Has headaches, no blurred vision, no earache, no runny nose, no sore throat, no dysphagia, has episode of vomiting a couple of days ago. No diarrhea, no blood in the stools or black stools. Normal bladder movements. No swelling in the legs, no rash. Admission Exam Per Admitting Provider GENERAL: The patient is obese, not in acute distress. VITAL SIGNS: Temperature 37.4, pulse 114, respiratory rate in 20s, blood pressure 127/87, oxygen 97% on room air. HEENT: Pupils equal, round, and reactive to light. Oral mucosa moist. NECK: No neck masses seen. CARDIOVASCULAR: S1, S2 heard. Tachycardia. No murmurs. RESPIRATORY SYSTEM: Normal AP diameter. No accessory muscle use. Mild bibasilar crackles. No wheezing. ABDOMEN: Soft, bowel sounds present, nontender. No distention. CENTRAL NERVOUS SYSTEM: Cranial nerves II-XII grossly intact. Nonfocal. EXTREMITIES: No edema, no erythema. Principal Diagnosis Acute respiratory failure with hypoxemia: Pneumonia due to COVID 19 Factor V leiden mutation Thyroid nodule Discharge Exam General- No acute distress Head- atraumatic Eyes- PERRL, EOMI, ENT- oropharynx clear Neck- supple, no JVD Lungs- clear to auscultation Heart- regular rhythm; no murmur Abdomen- normal bowel sounds, soft, nontender Extremities- no calf tenderness Neuro- alert, oriented x 3; PERRL, EOMI; no facial palsy; no dysarthria Skin- warm & dry Discharge Data Allergies Allergy/AdvReac Type Severity Reaction Status Date / Time amoxicillin Allergy Unknown RASH, Verified 09/08/20 23:01 DIAPHORESIS azithromycin Allergy Unknown Rash Verified 09/08/20 23:01 cephalexin Allergy Unknown RASH Verified 09/08/20 23:01 clindamycin Allergy Unknown RASH Verified 09/08/20 23:01 doxycycline Allergy Unknown RASH Verified 09/08/20 23:01 erythromycin base Allergy Unknown RASH Verified 09/08/20 23:01 naproxen Allergy Unknown RASH, uses Verified 09/08/20 23:01 ibuprofen at home Bactrim AdvReac Unknown NAUSEA AND Verified 03/10/15 16:43 VOMITING citalopram AdvReac Unknown HEADACHE Verified 09/08/20 23:01 metoclopramide AdvReac Unknown DIAPHORESIS, Verified 09/08/20 23:01 MOOD CHANGES, LOW BP sulfamethoxazole AdvReac Unknown NAUSEA AND Verified 09/08/20 23:01 VOMITING sumatriptan AdvReac Unknown SEVERE Verified 09/08/20 23:01 HEADACHE trimethoprim AdvReac Unknown NAUSEA AND Verified 09/08/20 23:01 VOMITING Penicillins AdvReac Unknown Verified 09/08/20 23:[address] ANGIOGRAM OF THE CHEST CLINICAL HISTORY: Dyspnea. Atypical chest pain. COMPARISON STUDY: Chest x-ray dated 01/10/2015. TECHNIQUE: Following the IV administration of 118 cc of Optiray 320, CT angiogram of the chest was performed from the upper abdomen to the thoracic inlet utilizing the pulmonary embolus protocol. Images are reviewed in the axial, sagittal, and coronal planes. 3-D MIPS images are created and assessed. IV contrast was administered without complication. A dose lowering technique was utilized adhering to the principles of ALARA. The examination is compromised by motion artifact. CT DOSE: 804.94 mGy.cm FINDINGS: Thyroid: Imaged portions of the thyroid gland appear mildly enlarged and heterogeneous. A 14 mm low-attenuation nodule is seen in the left lobe. Thoracic aorta: The thoracic aorta is normal in caliber and demonstrates standard 3-vessel arch anatomy. No dissection is seen. Pulmonary vasculature: The pulmonary trunk is normal in caliber. There are no filling defects identified in main, lobar, or segmental pulmonary branches to suggest pulmonary embolus. Heart: The heart is top normal in size and without pericardial effusion. Lungs and pleural spaces: There is diffuse/multifocal predominantly groundglass consolidation seen throughout both lungs. No pleural effusion is identified. The trachea and central airways are clear. Mediastinum: There is mediastinal lymphadenopathy. A right peritracheal node on image #181 measures 2.1 x 1.4 cm. Prevascular nodes measure up to 1.2 cm in short axis. Rhonda: Clear. Axillae: There is no axillary lymphadenopathy. Upper abdomen: The liver appears steatotic. A small hiatal hernia is noted. Skeletal structures: No lytic or blastic bony lesions are seen. IMPRESSION: 1. There is no evidence of pulmonary embolus in the main, lobar, or segmental pulmonary arteries. 2. There is diffuse/multifocal and predominantly groundglass consolidation seen throughout both lungs typical for an infectious/inflammatory pneumonitis. Clinical correlation will be required and radiographic follow-up to resolution is recommended. 3. There is no pleural effusion. 4. Mediastinal lymphadenopathy is nonspecific and likely on a reactive basis. 5. A 14 mm nodule is seen in the left lobe of the thyroid gland. Nonemergent t hyroid ultrasound is recommended for further assessment. ACT 112: Negative or not required by law. Electronically signed by: Juan Antonio Huff M.D. 09/09/2020 7:43 AM Dictated: 09/09/20 0734Transcribed: 09/09/20 0734 Consultations 09/08/20 22:08 ED Decision to Admit Stat 09/09/20 01:14 Consult Case Management - Discharge Planning Routine 09/09/20 08:00 Consult Pulmonology Routine Ordered Studies 09/08/20 19:30 CT angio chest PE protocol Urgent Hospital Course (1) Acute respiratory failure with hypoxemia: Present on admission with SOB and pneumonia Hx of COVID 19 pneumonia where she was rencently admitted at [facility] During her hospital course at [place], she received IV Remdesivir and Dexamethasone; then discharged home on 08/25/20 with home 02 CTA chest showed no evidence of pulmonary embolus in the main, lobar, or segmental pulmonary arteries. There is diffuse/multifocal and predominantly groundglass consolidation seen throughout both lungs typical for an infectious/inflammatory pneumonitis. Pulmonology on board Continue Azithromycin to complete 5 days, 40 mg prednisone 40mg x 7 days IV Rocephin discontinued since procalcitonin/WNC wnl, very low suspicious for bacterial pneumonia Sputum cx and blood cx showed no grow Continue to wean on oxygen supplement Continue respiratory treatment Fluticasone daily inhaler may be necessary for daily control going forward Continue use of incentive spirometer and flutter valve at home to maintain expectoration of mucus. 2 step done today that suggests pt required 1 L NC with exertion Saturated well on RA at rest Will need a repeat CT chest in 6 weeks Ok from pulmonology standpoint to discharge home Follow up with pulmonology Factor V leiden mutation Continue eliquis 2.5 mg BID Thyroid nodule CT showed a 14 mm nodule is seen in the left lobe of the thyroid gland. Will need outpatient thyroid ultrasound DVT px on Eliquis FULL CODE Disposition Will discharge home today Total Time Total Time Spent Total Time Spent (In Minutes): 35 minutes Total Time Includes: Examination of the Patient, Discharge Planning, Medication Reconciliation, Communication With Other Providers and Other Discharge Plan Discharge Items Patient Disposition: Home - Self-Care Reason For Visit: SOB Discharge Diagnosis: Acute respiratory failure with hypoxemia: Pneumonia due to COVID 19 Factor V leiden mutation Thyroid nodule Activity: Resume your previous activity Non-emergency contact: Primary Care Provider and [employer] Call non-emergency contact if: you have any medication questions and your temperature is above 101 Follow-up/Referrals: Shanae Tomlinson PA-C [Primary Care Provider] - (Date & Time 09/16/2020 10:00 AM Provider Shanae Tomlinson PA-C [facility] ) Diet: Regular Addtl Attending Provider Instructions: Follow up with your primary care provider Bushra HICKEY on 09/16 @ 10 AM Follow up with pulmonology (Already schedule for an appointment) You will need a repeat CT scan chest in 6 weeks ( Your lung specialist or provider will order it) Follow up with your provider to monitor your thyroid nodule seen on imaging Continue oxygen supplement with 1L NC with ambulation or exertion Complete the course of the antibiotic and prednisone Continue use of incentive spirometer and flutter valve at home to maintain expectoration of mucus. Pending Studies at Discharge: No Stand-Alone Forms: My [facility], Smoking Cessation Medications and DC Order Prescriptions: New prednisone 20 mg Tablet 40 mg PO QAM Qty: 4 RF: 0 Breo Ellipta 100-25 mcg/dose Blister With Device 1 ea inhalation DAILY 30 Days Qty: 30 RF: 0 benzonatate 100 mg capsule 100 mg PO TID PRN (Reason: Cough) Qty: 30 RF: 0 Continued [id number] 50-325-40 mg capsule 2 cap PO Q4H PRN (Reason: headache) Qty: 60 RF: 0 cyclobenzaprine 10 mg tablet 10 mg PO BID PRN (Reason: Muscle Spasm) RF: 0 albuterol sulfate 2.5 mg /3 mL (0.083 %) solution for nebulization 2.5 mg continuous nebulization Q4 PRN (Reason: Wheezing) RF: 0 lorazepam 0.5 mg tablet 0.5 mg PO TID PRN (Reason: Anxiety) RF: 0 Eliquis 2.5 mg tablet 2.5 mg PO BID RF: 0 ibuprofen 800 mg tablet 800 mg PO TID PRN (Reason: Pain) RF: 0 Discharge Orders: Discharge Order (Routine); Ordered 09/12/20 Ordered By: Flo Evans Admission Data Admit Date/Time: 09/08/20 23:59 Attending Provider: Flo Evans Admit Provider: Lonnie Tony Primary Care Provider: Shanae Tomlinson Other Providers: Elder Figueroa Other Interventions: Discharge Summary Assessment (RN) Last Done: 09/12/20 16:15
== END 2020-09-12 17:40 | disposition home or self-care (01) | DRG 177 ==
LOC: ED 18:47 → SUATTDRO 23:59 → 2N 09-09 00:45